=== PATIENT | male | born 1945 | race Caucasian/White ===

== ENCOUNTER 2016-06-27 09:48 | Inpatient (IN) | payer MEDICARE ==
[~2016-06-27] VITALS: Ht 182.9 cm; Wt 136.1 kg
[~2016-06-27 09:48] MED LIST: ACTOPLUS M15 MG/500 PO; ACTOS30 MG PO; ADLT ASA LOW81 MG PO; ADULT ASA81 MG OR; AVALIDE1 TA1 OR; AVALIDE1 TA1 PO; BABY ASPIRIN81 MG OR; BACTRIM DS1 TAB PO; CIPRO XR500 MG PO; CIPRO250 MG PO; CIPRO500 MG PO; CIPROFLOXACIN250 MG OR; CLINDAMYCIN300 M1 PO; COREG6.25 MG PO; DIFLUCAN100 MG PO; ESCITALOPRAM OX10 MG PO; FLEXERIL PO; GENTAMICIN15 ML/BTL OP; GLIMEPIRIDE2 MG PO; GLIPIZIDE5 MG PO; GLUCOPHAGE1000 MG PO; GLYBURIDE5 MG PO; HYDROCHLOROT12.5 MG PO; HYDROCHLOROT25 MG PO; JANUVIA100 MG PO; KEFLEX500 MG PO; LANTUS100 MG/ML SC; LEVEMIR1000 UNITS SC; LISINOPRIL20 MG PO; LORTAB 5 OR; LORTAB 5-325 MG1 TAB PO; LORTAB 5/3255 MG PO; LORTAB 7.57.5 MG/TAB PO; LORTAB5 OR; LORTAB5 PO; LOSARTAN POT50 MG PO; LOSARTAN POTASS50 MG PO; MEDDOSEPAK PO; MELOXICAM7.5 MG PO; METFORMIN HCL1000 MG PO; METFORMIN500 MG PO; MOBIC15 MG PO; MYCOLOG30 GM EX; NITRO-DUR0.4 MG/HR TD; NITROFURANTOIN100 MG PO; NORVASC10 M1 PO; NORVASC10 MG PO; NYSTAT/TRIA1 EX; NYSTATIN100000 M1 PO; PLAVIX75 MG PO; PRAVASTATIN SOD20 MG PO; TH ASPIRIN LOW81 MG PO; ULTRAM50 M1 PO; VICODIN1 TAB PO; VIGAMOX OS; WARFARIN5 MG PO; WARFARIN7.5 MG PO; XARELTO15 MG PO; ZOFRAN ODT8 MG SL; ZOFRAN4 MG/TAB PO
[2016-06-27] MEDS ORDERED: LEVEMIR FL100 UNIT/M SC (15:38)
[2016-06-30] VITALS (7 sets, daily range): BP systolic 135–160; BP diastolic 61–81
[2016-06-30] MEDS ORDERED: LOSARTAN/HCT1 TA1 PO (07:50)
[2016-06-30 08:21] LABS: HEMATOCRIT 37.6 % (39.0-50.0); HEMOGLOBIN 12.4 g/dl (14.0-18.0); IMMATURE GRANULOCYTES 0.5 % (0.0-1.0); MEAN CELL VOLUME 88.7 fL CALC (80.0-100.0); MEAN CORPUSCULAR HGB 29.2 pG CALC (26.0-32.0); NEUT# 5.86 thou/uL (1.82-7.42); RED BLOOD COUNT 4.24 mill/uL (4.70-6.10); RED CELL DISTRI WIDTH 13.2 % (11.5-15.5)
[2016-06-30 08:39] LABS: ACT PARTIAL THROMBO TIME 26.3 SECONDS (20.0-32.5); PROTHROMBIN TIME 10.7 SECONDS (9.0-12.5)
--- NOTE | 2016-06-30 15:00 | NUR ---
PT TO ROOM VIA BED ACCOMPANIED BY STAFF; PT A/O X3; DRSG TO RT SHOULDER CDI; ICE PACK APPLIED; IVF INFUSING WITHOUT DIFFICULTY; BLARI HOSE IN PLACE; PT ORIENTED TO ROOM AND CALL SYSTEM; WILL CONTINUE TO MONITOR.
--- NOTE | 2016-06-30 17:00 | NUR ---
PT SITTING UP IN CHAIR; MEDICATED ORDERED FOR C/O RT SHOULDER PAIN 10/17; CALL JEAN-BAPTISTE WITHIN REACH; WILL CONTINUE TO MONITOR.
--- NOTE | 2016-06-30 19:16 | NUR ---
BESIDE REPORT RECEIVED FROM MINDI ARAUJO. PT RESTING IN BED SUPINE WITH SLING IN PLACE TO RIGHT ARM. STATES THAT HIS PAIN IS MANAGABLE AT THIS TIME. INCENTIVE SPIROMETER AT BEDSIDE AND PT STATES HE IS USING IT. NO RESPIRATORY DISTRESS NOTED. PLAN OF CARE DISCUSSED. ENCOURAGED TO VERBALIZE CONCERNS. STATES UNDERSTANDING. SAFETY MEASURES IN PLACE. CALL LIGHT SYSTEM REVIEWED AND IN REACH.
--- NOTE | 2016-07-01 | NUR ---
PT RESTING IN SUPINE POSITION IN NO APPARENT DISTRESS. CPAP IN PLACE. UP OCCASIONALLY TO USE URINAL. INCENTIVE SPIROMETER USED WHILE AWAKE. IV SITE HAS NO SIGNS OF INFILTRATION OR PHLEBITIS. SAFETY MEASURES IN PLACE. CALL LIGHT WITHIN REACH.
[2016-07-01 03:42] VITALS: BP 150/74
--- NOTE | 2016-07-01 03:53 | NUR ---
PT UP TO CHAIR AT THIS TIME. STATES THAT PERCOCET IS EFFECTIVE FOR PAIN. ICE PACK ALSO APPLIED TO RIGHT SHOULDER. NO RESPIRATORY DISTRESS NOTED. DENIES ANY NEEDS. SAFETY MEASURES IN PLACE. CALL LIGHT WITHIN REACH.
[2016-07-01 05:34] LABS: HEMATOCRIT 38.2 % (39.0-50.0); IMMATURE GRANULOCYTES 0.5 % (0.0-1.0); MEAN CELL VOLUME 92.9 fL CALC (80.0-100.0); MEAN CORPUSCULAR HGB 29.2 pG CALC (26.0-32.0); MEAN CORPUSCULAR HGB CONC 31.4 g/L CALC (32.0-36.0); NEUT# 9.7 thou/uL (1.82-7.42); RED BLOOD COUNT 4.11 mill/uL (4.70-6.10); RED CELL DISTRI WIDTH 13.2 % (11.5-15.5)
[2016-07-01 05:48] LABS: INTERNATIONAL NORMALIZED RATIO 1.2 RATIO (0.7-1.3); PROTHROMBIN TIME 13.7 SECONDS (9.0-12.5)
[2016-07-01 05:51] LABS: ANION GAP 13 (6-22 (CALC)); BUN 10 mg/dL (8-23); BUN/CREATININE RATIO 12 (12-20 (CALC)); CALCIUM 8.1 mg/dL (8.4-10.2); CARBON DIOXIDE 26 mmol/l (22-30); CHLORIDE 104 mmol/l (95-108); CREATININE 0.8 mg/dL (0.7-1.3); GFR > 60 ML/MIN (>=60 (CALC)); GFR FOR AFR.AMER. > 60 ML/MIN (>=60 (CALC)); GLUCOSE 206 mg/dL (82-115); POTASSIUM 4.2 mmol/l (3.5-5.1); SODIUM 139 mmol/l (137-146)
--- NOTE | 2016-07-01 07:11 | NUR ---
BEDSIDE REPORT RECEIVED FROM RED YIN. PT UP TO CHAIR. DENIES PAIN. REPORTING OF CONCERNS ENCOURAGED. FALL PRECAUTIONS REINFORCED. PT STATES ANTICIPATION OF DISCHARGE. DSICHARGE PROCESS REVIEWED. PLAN OF CARE DISCUSSED. CALL LIGHT REVIEWED AND IN REACH. PT STATES UNDERSTANDING.
[2016-07-01 07:59] VITALS: BP 117/83
[2016-07-01 08:01] VITALS: BP 117/83
[2016-07-01] MEDS ORDERED: PERCOCET 10/31 COMBO PO (10:23)
--- NOTE | 2016-07-01 11:13 | NUR ---
Discharge instructions given. Patient verbalizes understanding of same. Discharged in stable condition via Wheelchair to Home with spouse. All belongings sent with pt.
== END 2016-07-01 11:17 | DRG 483 ==
LOC: ENPENDDIS → MS2 06-30 07:39
PROVIDERS: Internal Medicine; Orthopaedic Surgery; ADMIT Internal Medicine; ATTEND Internal Medicine
PROC: 0RRJ00Z Replacement of Right Shoulder Joint with Reverse Ball and Socket Synthetic Substitute, Open Approach (ICD-10-PCS; principal; 2016-06-30)
DX: M75.111 Incomplete rotator cuff tear or rupture of right shoulder, not specified as traumatic (principal); I48.0 Paroxysmal atrial fibrillation; Z68.41 Body mass index [BMI] 40.0-44.9, adult; M19.011 Primary osteoarthritis, right shoulder; S46.211A Strain of muscle, fascia and tendon of other parts of biceps, right arm, initial encounter; I10 Essential (primary) hypertension; E11.9 Type 2 diabetes mellitus without complications; G47.33 Obstructive sleep apnea (adult) (pediatric); E66.01 Morbid (severe) obesity due to excess calories; X58.XXXA Exposure to other specified factors, initial encounter; Z86.718 Personal history of other venous thrombosis and embolism; Z79.01 Long term (current) use of anticoagulants
CPT/HCPCS: J1650; J2710

== ENCOUNTER 2017-05-10 09:12 | Day surgery (SDC) | payer MEDICARE ==
[~2017-05-10] VITALS: Ht 182.9 cm; Wt 147.4 kg
[~2017-05-10 09:12] MED LIST changes: +CEPHALEXIN500 M1 PO; +LEVEMIR FL100 UNIT/M SC; +LOSARTAN/HCT1 TA1 PO; +METFORMIN500 M1 PO; +PERCOCET 10/31 COMBO PO; +TYLENOL # 31 TA1 PO
[2017-05-10 11:37] VITALS: BP 131/78
[2017-05-23] MEDS ORDERED: VOLTAREN1%GEL TOP (08:51)
== END 2017-05-10 11:45 | disposition home or self-care (01) ==
LOC: ORM 09:12
PROVIDERS: ATTEND Anesthesiology Pain Medicine
PROC: 3E0T33Z Introduction of Anti-inflammatory into Peripheral Nerves and Plexi, Percutaneous Approach (ICD-10-PCS; principal; 2017-05-10)
PROC: 3E0T3BZ Introduction of Anesthetic Agent into Peripheral Nerves and Plexi, Percutaneous Approach (ICD-10-PCS; 2017-05-10)
DX: R07.82 Intercostal pain (principal); M79.2 Neuralgia and neuritis, unspecified

== ENCOUNTER 2017-11-25 19:07 | Inpatient (IN) | payer MEDICARE ==
[~2017-11-25] VITALS: Ht 182.9 cm; Wt 147.2 kg
[~2017-11-25 19:07] MED LIST changes: +VOLTAREN1%GEL TOP
--- NOTE | 2017-11-25 19:26 | NUR ---
PT WHEELED INTO ROOM
[2017-11-25 19:56] LABS: HEMATOCRIT 37.9 % (39.0-50.0); HEMOGLOBIN 12.8 g/dl (14.0-18.0); IMMATURE GRANULOCYTES 0.8 % (0.0-5.0); MEAN CELL VOLUME 91.5 fL CALC (80.0-100.0); MEAN CORPUSCULAR HGB 30.9 pG CALC (26.0-32.0); MEAN CORPUSCULAR HGB CONC 33.8 g/L CALC (32.0-36.0); NEUT# 6.8 thou/uL (1.82-7.42); RED BLOOD COUNT 4.14 mill/uL (4.70-6.10); RED CELL DISTRI WIDTH 12.2 % (11.5-15.5)
--- NOTE | 2017-11-25 20:03 | NUR ---
PT TO XRAY FOR [address] VIEW[address] PT TO HAVE [address] SCAN, WILL BE TRANSFERED TO [facility]. PT AND FAMILY AWARE.
[2017-11-25 20:13] LABS: ALBUMIN 3.1 g/dL (3.2-5.0); ALKALINE PHOSPHATASE 83 u/l (38-126); ANION GAP 11 (6-22 (CALC)); BILIRUBIN, TOTAL 0.3 mg/dL (0.0-1.4); BUN 8 mg/dL (8-23); BUN/CREATININE RATIO 12 (12-20 (CALC)); C-REACTIVE PROTEIN 4.9 mg/dL (0-0.9); CARBON DIOXIDE 28 mmol/l (22-30); CHLORIDE 102 mmol/l (95-108); CREATININE 0.7 mg/dL (0.7-1.3); GFR > 60 ML/MIN (>=60 (CALC)); GFR FOR AFR.AMER. > 60 ML/MIN (>=60 (CALC)); SGOT/AST 16 u/l (19-48); SGPT/ALT 30 u/l (11-66); SODIUM 138 mmol/l (137-146); TOTAL PROTEIN 5.9 g/dL (6.3-8.2)
[2017-11-25 20:15] LABS: INTERNATIONAL NORMALIZED RATIO 1.3 RATIO (0.7-1.3); PROTHROMBIN TIME 14.2 SECONDS (9.0-12.5)
[2017-11-25] MEDS ORDERED: (None)1 % OD (20:35)
[2017-11-25] MEDS ORDERED: ACULAR OD (20:37)
--- NOTE | 2017-11-25 21:03 | NUR ---
[facility] HERE TO TRANSPORT TO [facility] FOR CT SCAN.
--- NOTE | 2017-11-26 | NUR ---
PT BACK FROM [facility], FULL LITER OF NS STILL HANGING. PER M[place], EMT-P FROM [facility] PT WOULD NOT KEEP ARM STRAIGHT. WHEN IV PLACED ON PUMP, PT COMPLAINED IV HURTING. NOTED IV SITE INFILTRATED. PULLED IV
--- NOTE | 2017-11-26 00:57 | NUR ---
RESTARTED IV TO RIGHT FOREARM DR BUTLER UPDATED FAMILY ON PT'S RESULTS AND PLAN TO ADMIT. DAUGHTER QUESTIONED IF [facility] WAS THE APPROPRIATE PLACE FOR PT DUE TO DX AND DR BUTLER ASSURED FAMILY IT WAS.
[2017-11-26 01:00] VITALS: BP 130/68
--- NOTE | 2017-11-26 01:09 | NUR ---
REPORT GIVEN TO INGE. MINDI
--- NOTE | 2017-11-26 01:24 | NUR ---
Admission Note Report Given to: MINDI ALCAZAR Transported by: Wheelchair X Stretcher Transported with: X Nurse Transporter X Patent IV O2 X Credentials Specialist
[2017-11-26 01:30] VITALS: BP 163/69
--- NOTE | 2017-11-26 02:30 | NUR ---
PATIENT ADMITTED FROM ER VIA STRETCHER WITH ER STAFF IN ATTENDANCE. PATIENT BEING ADMITTED FOR SUBACUTE MULTIFOCAL CVA. PATIENT MAX ASSIST FROM STRETCHER TO STANDING SCALE AND THEN TO BED. PATIENT IS VERY UNSTEADY ON HIS FEET. PATIENT IS AWAKE ALERT AND ORIENTED TO PERSON AND PLACE. PATIENT WITH COMPLAINT OF SEVERE HEADACHE. MEDICATED WITH LORTAB 5/325MG PO TABS 2 ORDERED. PATIENT STATES THAT HE WAS BROUGHT TO THE ER TONIGHT BY HIS FOR SEVERE H/A AND SEVERE WEAKNESS. HAND GRASP ARE EQUAL AND STRONG. PATIENT WITH VISUAL DIFFICULTIES. STATES THAT HE DID HAVE SOME EYE SURGERY AND DIFFICULTIES A FEW MONTHS AGO. PATIENT IS ABLE TO MOVE ALL EXTREMITIES. NO DIFFICULTY WITH SPEECH AT THIS TIME. PATIENT ASSIST TO THE SIDE OF THE BED TO ATTEMPT TO VOID BUT NOT ABLE AT THIS TIME. TRANSFERRED TO THE [facility] AND WAS NOT ABLE TO VOID THERE EITHER. ASSISTED BACK TO THE BED AND BLADDER SCANNED FOR 156CC. PATIENT ASKING FOR SANDWICH AND DRINK AND WAS ABLE TO EAT SMALL AMT OF THE SANDWICH WITH NO DIFFICULTY. DRINKING WITHOUT ANY DIFFICULTY. PATIENT ORIENTED TO ROOM AND SURROUNDINGS. INSTRUCTED ON USE OF NURSE CALL LIGHT SYSTEM AND TV REMOTE. SAFETY PRECAUTIONS REVIEWED WITH PATIENT. FAMILY AT BEDSIDE WITH C-PAP FROM HOME. CALL LIGHT IN REACH. WILL CONT TO MONITOR.
--- NOTE | 2017-11-26 04:12 | NUR ---
RT HERE AND SET UP C-PAP FOR PATIENT. RESTING IN BED AND STATES THAT THE PAIN MEDS WERE EFFECTIVE WITHPAIN SCALE OF 4/10 AT THIS TIME. SAFETY PRECAUTIONS REINFORCED. CALL LIGHT IN REACH. WILL CONT TO [facility].
[2017-11-26 04:27] VITALS: BP 154/82
--- NOTE | 2017-11-26 06:05 | NUR ---
PATIENT APPEARS SLEEPING WITH C-PAP IN PLACE AND EYES CLOSED. RESP ARE EVEN AND UNLABORED. CALL LIGHT IN REACH. WILL CONT TO MONITOR.
--- NOTE | 2017-11-26 06:39 | NUR ---
PATIENT ASKING TO GET OOB AT THIS TIME. TELE MONITOR LEADS REPLACED. PATIENT ASSISTED OOB TO RECLINER WITH USE OF WALKER AND STAFF. PATIENT INCONT OF MODERATE AMT OF URINE. PADS CHANGED. PATIENT CONT TO HAVE VISION PROBLEMS-ATTEMPTING TO SUPERVISOR SILVERING DEPARTMENT OR PLACE THINGS INAPPROPRIATELY. CALL LIGHT IN REACH. WILL CONT TO MONITOR.
--- NOTE | 2017-11-26 07:06 | NUR ---
REPORT RECIEVED BY JAIMIE. PT IS SITTING IN THE RECLINER WITH NO S/S OF DISTRESS NOTED. CALL LIGHT IN REACH.
--- NOTE | 2017-11-26 08:05 | NUR ---
PT IS SITTING IN RECLINER. TELE IN PLACE. LUNG SOUND CLEAR/DIMINISHED. #[id number] THAT APPEAR HEALTHY. PT DENIES NEEDS AT THIS TIME. SAFETY PRECAUTIONS REINFORCED AND CALL LIGHT IN REACH.
[2017-11-26 08:30] VITALS: BP 170/85
--- NOTE | 2017-11-26 12:44 | NUR ---
MEDICATED PT WITH LORTAB FOR PAIN SEE EMAR. IN ROOM. PT DENIES ANY OTHER NEEDS AT THIS TIME. CALL LIGHT IN REACH.
[2017-11-26 13:01] LABS: URINE BILIRUBIN - DIPSTICK NEGATIVE (NEGATIVE); URINE BLOOD DIPSTICK TRACE-LYSED (NEGATIVE); URINE COLOR YELLOW; URINE GLUCOSE - DIPSTICK >=1000 mg/dL (NEGATIVE); URINE KETONE 15 mg/dL (NEGATIVE); URINE LEUK ESTERASE NEGATIVE (NEGATIVE); URINE NITRITE - DIPSTICK NEGATIVE (Negative); URINE PROTEIN - DIPSTICK NEGATIVE (NEG-TRACE); URINE SPECIFIC GRAVITY 1.015; URINE UROBILINOGEN - DIPSTICK 0.2 E.U./dL (0.2)
[2017-11-26 13:03] LABS: URINE CLARITY CLEAR
[2017-11-26 14:31] LABS: HEMOGLOBIN 12.7 g/dl (14.0-18.0); IMMATURE GRANULOCYTES 1.2 % (0.0-5.0); MEAN CELL VOLUME 90.2 fL CALC (80.0-100.0); MEAN CORPUSCULAR HGB CONC 34.3 g/L CALC (32.0-36.0); NEUT# 7.75 thou/uL (1.82-7.42); RED BLOOD COUNT 4.1 mill/uL (4.70-6.10); RED CELL DISTRI WIDTH 12.2 % (11.5-15.5)
[2017-11-26 14:41] LABS: ANION GAP 16 (6-22 (CALC)); BUN 13 mg/dL (8-23); BUN/CREATININE RATIO 18 (12-20 (CALC)); CARBON DIOXIDE 22 mmol/l (22-30); CHLORIDE 101 mmol/l (95-108); CREATININE 0.7 mg/dL (0.7-1.3); GFR > 60 ML/MIN (>=60 (CALC)); GFR FOR AFR.AMER. > 60 ML/MIN (>=60 (CALC)); POTASSIUM 4.2 mmol/l (3.5-5.1); SODIUM 134 mmol/l (137-146)
[2017-11-26 16:00] VITALS: BP 169/83
--- NOTE | 2017-11-26 16:05 | NUR ---
PT IS RESTING IN BED WITH NO S/S OF DISTRESS NOTED. PT DENIES NEEDS AT THIS TIME. CALL LIGHT IN REACH . IN ROOM.
--- NOTE | 2017-11-26 19:20 | NUR ---
PATIENT APPEARS SLEEPING WITH C-PAP IN PLACE AND PATIENT POSITIONED ON HIS SIDE. RESP ARE EVEN AND UNLABORED AT THIS TIME. CALL LIGHT IN REACH. WILL CONT TO MONITOR.
[2017-11-26 19:46] VITALS: BP 123/69
--- NOTE | 2017-11-26 22:00 | NUR ---
PATIENT RESTING IN BED AT THIS TIME-AWAKE ALERT AND ORIENTEDX3. PATIENT DID GET SHOWER EALIER WITH ASSIST OF SCIENTIFIC PHOTOGRAPHER. PATIENT IS HAVING DIFFICULTY WITH ANY KIND OF CONTROL REGUARDING URINATION-WHEN AMB TO THE BR EARLIER WAS DRIBBLING ALL THE WAY TO THE BR. WHEN ASSISTING TO THE BSC-DRIBBLING ON THE FLOOR. INCONT OF SMALL AMT OF URINE IN THE BED ON LINEN PADS. PATIENT CONT TO C/O RIGHT SIDE HEADACHE. MEDICATED WITH LORTAB FOR 7/10 PAIN SCALE. [id number] WITH 7UNITS OF NOVALOG SC RIGHT UPPER ARM. HS SNACK PROVIDED. LOVENOX GIVEN ORDERED. HEP LOCK TO RIGHT WRIST INTACT-APPEARS HEALTHY AT THIS TIME. PATIENT CONT TO HAVE VISUAL DIFFICULTIES MICHELLE WITH RIGHT EYE. TELE MONITORING DEVICE IN PLACE-SR. LUNGS ARE DIMINISHED THROUGHOUT. ENCOURAGED DEEP BREATING EXERCISES. ABD IS LARGE WITH BS PRESENT. NO PEDAL EDEMA NOTED. SAFETY PRECAUTIONS REINFORCED. CALL LIGHT IN REACH. WILL CONT TO MONITOR.
--- NOTE | 2017-11-26 22:51 | NUR ---
PATIENT ASSISTED UP TO THE BSC AGAIN AND PATIENT AGAIN CONSTANT DRIBBLING. GEETA-CARE DONE AGAIN WITH SOAP AND WATER AND ASSISTED BACK TO THE BED. LINEN AND GOWN CHANGED. PATIENT PROVIDED WITH SECURED PAD FOR CONSTANT DRIBBLING. PATIENT ASSISTED WITH C-PAP AND HOB ELEVATED. HEADACHE IS BETTER WITH PAIN SCALE OF 4/7. SAFETY PRECAUTIONS REINFORCED. CALL LIGHT IN REACH. WILL CONT TO MONITOR.
[2017-11-27 00:25] VITALS: BP 149/74
--- NOTE | 2017-11-27 03:13 | NUR ---
PATIENT APPEARS SLEEPING WITH C-PAP IN PLACE POSITIONED ON HIS SIDE. CALL LIGHT IN REACH. WILL CONT TO MONITOR.
[2017-11-27 05:13] VITALS: BP 171/79
[2017-11-27 08:00] VITALS: BP 137/55
--- NOTE | 2017-11-27 09:00 | NUR ---
PT SEEN AWAKE, ALERT, UP OOB IN CHAIR. LUNGS CLEAR, RA. ABDOMEN SOFT, DISTENDED, BM MONDAY. PT WITH NOTED VISION ISSUES, REACHES FOR SOMETHING AND MISSES. NO ACUTE DISTRESS.
[2017-11-27 11:29] VITALS: BP 133/61
--- NOTE | 2017-11-27 13:00 | NUR ---
PT'S HAS BEEN AT BEDSIDE THIS AM. PT HAS GOTTEN BACK INTO BED, USES HIS OWN CPAP. PT THOUGHT IT WAS TWO IN THE AFTERNOON, HAVING READ THE HANDS OF THE CLOCK WRONG.
[2017-11-27 15:35] VITALS: BP 138/59
--- NOTE | 2017-11-27 17:28 | NUR ---
PT OOB IN CHAIR FOR SUPPER, NO COMPLAINT OF HEADACHE, DIZZINESS, OR OTHERWISE.
--- NOTE | 2017-11-27 18:21 | NUR ---
PT LEAVES FLOOR FOR ECHOCARDIOGRAM AT THIS TIME.
--- NOTE | 2017-11-27 18:50 | NUR ---
PT RETURNED TO ROOM 270 FROM ECHO IN STABLE CONDITION. ACCOMPANIED BY DIESEL DINKEY ENGINEER
[2017-11-27 19:40] VITALS: BP 119/68
--- NOTE | 2017-11-27 19:45 | NUR ---
PT RESTING IN BED. ASSISTED PT TO PLACE CPAP ON. PT IS ALERT AND ORIENTED X3. SHIFT ASSESSMENT COMPLETED AT THIS TIME. IV PATENT X1. PLAN OF CARE REIVEWED WITH PT. PT WAS MEDICATED PER MAR FOR A ZEPEDA. CALL LIGHT IN REACH. WILL CONTINUE TO [facility]
--- NOTE | 2017-11-27 23:49 | NUR ---
PT RESTING IN BED WITH EYES CLOSED. CPAP IN PLACE. RESP ARE EVEN AND UNLABORED. NO DISTRESS NOTED. CALL LIGHT IN REACH. WILL CONTINUE TO MONITOR
[2017-11-28 00:30] VITALS: BP 117/72
--- NOTE | 2017-11-28 03:40 | NUR ---
PT RESTING IN BED WITH EYES CLOSED. RESP ARE EVEN AND UNLABORED. NO DISTRESS NOTED. CALL LIGHT IN REACH. WILL CONTINUE TO MONITOR
[2017-11-28 04:05] VITALS: BP 138/77
[2017-11-28 05:07] LABS: HEMATOCRIT 39.2 % (39.0-50.0); HEMOGLOBIN 13.3 g/dl (14.0-18.0); MEAN CELL VOLUME 90.7 fL CALC (80.0-100.0); MEAN CORPUSCULAR HGB 30.8 pG CALC (26.0-32.0); MEAN CORPUSCULAR HGB CONC 33.9 g/L CALC (32.0-36.0); RED BLOOD COUNT 4.32 mill/uL (4.70-6.10); RED CELL DISTRI WIDTH 12.3 % (11.5-15.5)
[2017-11-28 05:34] LABS: ANION GAP 12 (6-22 (CALC)); BUN 17 mg/dL (8-23); BUN/CREATININE RATIO 23 (12-20 (CALC)); CARBON DIOXIDE 26 mmol/l (22-30); CHLORIDE 100 mmol/l (95-108); CREATININE 0.7 mg/dL (0.7-1.3); GFR > 60 ML/MIN (>=60 (CALC)); GFR FOR AFR.AMER. > 60 ML/MIN (>=60 (CALC)); POTASSIUM 4.1 mmol/l (3.5-5.1); SODIUM 134 mmol/l (137-146)
--- NOTE | 2017-11-28 06:55 | NUR ---
REPORT RECEIVED FROM MINDI BENNETT;PT APPEARS TO BE SLEEPING IN SUPINE POSITION WITH HOME CPAP ON;RESPIRATIONS EVEN AND UNLABORED ON RA;NO S/S OF DISTRESS NOTED;TELE MONITOR IN PLACE;FALL PRECAUTIONS NOTED WITH BED IN THE LOWEST POSITION;CALL LIGHT IN REACH;WILL CONTINUE TO MONITOR
--- NOTE | 2017-11-28 07:50 | NUR ---
PT OOB RESTING IN RECLINER;VS OBTAINED AND ASSESSMENT COMPLETED;PT DENIES ANY CURRENT PAIN OR NEEDS;RESPIRATIONS EVEN AND UNLABORED ON RA,CLEAR LUNG SOUNDS NOTED;ABDOMEN DISTENDED/SOFT ON PALPATION AND ACTIVE IN ALL 4 QUADRANTS;WEAK PEDAL PULSES;#22G TO RIGHT WIRST FLUSHED AND PATENT,SITE APPEARS HEALTHY;TELE MONITOR IN PLACE;PT VOIDED 150ML OF CLEAR/YELLOW URINE INTO URINAL;SKIN INTACT;PT DENIES ANY CURRENT NEEDS AND IS INSTRUCTED TO CALL FOR ASSISTANCE IF NEEDED;FALL PRECAUTIONS IN PLACE WITH CALL LIGHT IN REACH;WILL CONTINUE TO MONITOR
[2017-11-28 07:52] VITALS: BP 145/76
[2017-11-28] MEDS ORDERED: PREDNISONE20 MG PO (09:12)
[2017-11-28] MEDS ORDERED: COUMADIN5 MG PO (09:12)
[2017-11-28] MEDS ORDERED: ASPIRIN ADULT L81 M2 PO (09:12)
[2017-11-28 11:26] VITALS: BP 123/58
--- NOTE | 2017-11-28 11:30 | NUR ---
ALL DISCHARGE INFORMATION DISCUSSED AT THIS TIME;PT ENCOURAGED TO MONITOR BLOOD SUGAR;ALL QUESTIONS ANSWERED AND PT VERBALIZES UNDERSTANDING;IV SITE REMOVED WITH CATHETER INTACT;WHEELCHAIR TO BE PROVIDED FOR DISCHARGE;AWAITING [facility] WILL FOR MEDICATIONS.
--- NOTE | 2017-11-28 13:03 | NUR ---
Discharge instructions given. Patient verbalizes understanding of same. Discharged in stable condition via Wheelchair to Home with spouse. All belongings sent with pt.
--- NOTE | 2017-11-28 15:15 | NUR ---
Mr. De Jesus is a 72 year old male who was admitted to the hospital via ER following severe headache and weakness. A Speech/Language evaluation order was written and SCHOOL BUS DRIVER/CUSTODIAN attempted evaluation 11/28 but Mr. De Jesus was unavailable, taking a shower. When a second attempt was made Mr. De Jesus had been discharged. SCHOOL BUS DRIVER/CUSTODIAN will request d/c of inpatient order and will be available for evaluation through the [facility] Physical Medicine department. Thank you for the referral. Dileep Ponce M.A., [facility]-SCHOOL BUS DRIVER/CUSTODIAN
== END 2017-11-28 13:04 | disposition home or self-care (01) | DRG 65 ==
LOC: ED 19:07 → ED-I 11-26 00:25 → ED 11-26 00:51 → MS2 11-26 00:51
PROVIDERS: Family Medicine; Internal Medicine; ADMIT General Practice; ATTEND General Practice
DX: I63.511 Cerebral infarction due to unspecified occlusion or stenosis of right middle cerebral artery (principal); Z68.41 Body mass index [BMI] 40.0-44.9, adult; I67.4 Hypertensive encephalopathy; I11.9 Hypertensive heart disease without heart failure; I63.531 Cerebral infarction due to unspecified occlusion or stenosis of right posterior cerebral artery; M31.5 Giant cell arteritis with polymyalgia rheumatica; R26.9 Unspecified abnormalities of gait and mobility; E11.9 Type 2 diabetes mellitus without complications; F32.9 Major depressive disorder, single episode, unspecified; I48.0 Paroxysmal atrial fibrillation; D64.9 Anemia, unspecified; I25.10 Atherosclerotic heart disease of native coronary artery without angina pectoris; G47.33 Obstructive sleep apnea (adult) (pediatric); R32 Unspecified urinary incontinence; E78.5 Hyperlipidemia, unspecified; M19.90 Unspecified osteoarthritis, unspecified site; E66.01 Morbid (severe) obesity due to excess calories; Z86.718 Personal history of other venous thrombosis and embolism; Z79.02 Long term (current) use of antithrombotics/antiplatelets; Z79.4 Long term (current) use of insulin; Z86.711 Personal history of pulmonary embolism
CPT/HCPCS: J1650

== ENCOUNTER 2018-03-09 13:14 | Emergency (ER) | payer MEDICARE ==
[~2018-03-09] VITALS: Ht 182.9 cm; Wt 113.6 kg
[~2018-03-09 13:14] MED LIST changes: +(None)1 % OD; +ACULAR OD; +ASPIRIN ADULT L81 M2 PO; +COUMADIN5 MG PO; +PREDNISONE20 MG PO
[2018-03-09 14:23] LABS: HEMATOCRIT 39.4 % (39.0-50.0); HEMOGLOBIN 13.6 g/dl (14.0-18.0); IMMATURE GRANULOCYTES 0.5 % (0.0-5.0); MEAN CORPUSCULAR HGB 31.4 pG CALC (26.0-32.0); MEAN CORPUSCULAR HGB CONC 34.5 g/L CALC (32.0-36.0); NEUT# 5.99 thou/uL (1.82-7.42); RED BLOOD COUNT 4.33 mill/uL (4.70-6.10); RED CELL DISTRI WIDTH 13.2 % (11.5-15.5)
[2018-03-09 14:41] LABS: ALBUMIN 3.7 g/dL (3.2-5.0); ALKALINE PHOSPHATASE 81 u/l (38-126); ANION GAP 13 (6-22 (CALC)); BILIRUBIN, TOTAL 0.8 mg/dL (0.0-1.4); BUN 8 mg/dL (8-23); BUN/CREATININE RATIO 8 (12-20 (CALC)); CARBON DIOXIDE 27 mmol/l (22-30); CHLORIDE 107 mmol/l (95-108); GFR > 60 ML/MIN (>=60 (CALC)); GFR FOR AFR.AMER. > 60 ML/MIN (>=60 (CALC)); POTASSIUM 2.9 mmol/l (3.5-5.1); SGOT/AST 21 u/l (19-48); SODIUM 143 mmol/l (137-146); TOTAL PROTEIN 6.7 g/dL (6.3-8.2)
[2018-03-09 14:43] LABS: INTERNATIONAL NORMALIZED RATIO 1.9 RATIO (0.7-1.3); PROTHROMBIN TIME 19.7 SECONDS (9.0-12.5)
[2018-03-09 15:06] VITALS: BP 172/78
[2018-03-09] MEDS ORDERED: K-TAB20 MEQ PO (15:47)
[2018-03-09] MEDS ORDERED: REGLAN10 MG PO (15:48)
== END 2018-03-09 16:10 | disposition home or self-care (01) ==
LOC: ED 13:14
PROVIDERS: Family Medicine
DX: R25.1 Tremor, unspecified (principal); R11.0 Nausea; I10 Essential (primary) hypertension; E11.9 Type 2 diabetes mellitus without complications; G47.30 Sleep apnea, unspecified; I48.91 Unspecified atrial fibrillation; E78.00 Pure hypercholesterolemia, unspecified; F32.9 Major depressive disorder, single episode, unspecified

== ENCOUNTER 2018-06-06 09:00 | Outpatient (RCR) | payer MEDICARE ==
--- NOTE | 2018-05-11 14:08 | NUR ---
Pt. in for IOP and Treatment Team. Pt. is clean and neat. Alert and oriented times 3. Affect is mildly bright. Mood improving-Pt. states "I'm feeling better". Pt. 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 Pt. states the program is really helping with his depression and anxiety. Pt. denies any suicidal ideations. Pt. states his PCP increased his B/P meds. Pt. to report to the Program Nurse the changes in his medications. Pt. to continue with his current treatment plan. Pt. is attending IOP 2 times a week with monthly 1:1. Will follow up in one month. Treatment team is concluded.
[2018-05-30 10:40] VITALS: BP 158/89
[~2018-06-06 09:00] MED LIST changes: +BUSPAR10 M1 PO; +K-TAB20 MEQ PO; +REGLAN10 MG PO; +WELLBUTRIN XL300 MG PO
== END 2018-06-07 23:59 | disposition still patient (30) ==
LOC: SLIP3 09:00
PROVIDERS: ATTEND Specialist
DX: F33.1 Major depressive disorder, recurrent, moderate (principal); F41.1 Generalized anxiety disorder

== ENCOUNTER → 2018-06-28 | Outpatient (REF) | payer MEDICARE ==
[2018-06-28 14:24] LABS: URINE BILIRUBIN - DIPSTICK NEGATIVE (NEGATIVE); URINE BLOOD DIPSTICK NEGATIVE (NEGATIVE); URINE COLOR YELLOW; URINE GLUCOSE - DIPSTICK NEGATIVE (NEGATIVE); URINE KETONE NEGATIVE (NEGATIVE); URINE LEUK ESTERASE NEGATIVE (NEGATIVE); URINE NITRITE - DIPSTICK NEGATIVE (Negative); URINE PH 6.5 (4.5-8.0); URINE PROTEIN - DIPSTICK NEGATIVE (NEG-TRACE); URINE SPECIFIC GRAVITY 1.025
[2018-06-28 14:45] LABS: ANION GAP 13 (6-22 (CALC)); BUN 14 mg/dL (8-23); BUN/CREATININE RATIO 14 (12-20 (CALC)); CARBON DIOXIDE 26 mmol/l (22-30); CHLORIDE 107 mmol/l (95-108); GFR > 60 ML/MIN (>=60 (CALC)); GFR FOR AFR.AMER. > 60 ML/MIN (>=60 (CALC)); POTASSIUM 4.4 mmol/l (3.5-5.1); SODIUM 140 mmol/l (137-146)
[2018-06-28 14:50] LABS: HEMATOCRIT 38.9 % (39.0-50.0); HEMOGLOBIN 12.7 g/dl (14.0-18.0); IMMATURE GRANULOCYTES 0.9 % (0.0-5.0); MEAN CELL VOLUME 93.5 fL CALC (80.0-100.0); MEAN CORPUSCULAR HGB 30.5 pG CALC (26.0-32.0); MEAN CORPUSCULAR HGB CONC 32.6 g/L CALC (32.0-36.0); NEUT# 6.56 thou/uL (1.82-7.42); RED BLOOD COUNT 4.16 mill/uL (4.70-6.10); RED CELL DISTRI WIDTH 12.4 % (11.5-15.5)
== END | disposition home or self-care (01) ==
LOC: LAB 13:38
PROVIDERS: ATTEND Nurse Practitioner Family
DX: R10.819 Abdominal tenderness, unspecified site (principal); R82.90 Unspecified abnormal findings in urine

== ENCOUNTER 2018-12-12 21:00 | Emergency (ER) | payer MEDICARE ==
[~2018-12-12] VITALS: Ht 180.3 cm; Wt 132.0 kg
[~2018-12-12 21:00] MED LIST changes: +BUSPIRONE7.5 MG PO; +LISINOPRIL20 M1 PO
[2018-12-12 21:40] LABS: HEMATOCRIT 39.7 % (39.0-50.0); HEMOGLOBIN 13.1 g/dl (14.0-18.0); IMMATURE GRANULOCYTES 0.4 % (0.0-5.0); MEAN CELL VOLUME 91.9 fL CALC (80.0-100.0); MEAN CORPUSCULAR HGB 30.3 pG CALC (26.0-32.0); NEUT# 6.24 thou/uL (1.82-7.42); RED BLOOD COUNT 4.32 mill/uL (4.70-6.10); RED CELL DISTRI WIDTH 12.5 % (11.5-15.5)
[2018-12-12 22:04] LABS: ACT PARTIAL THROMBO TIME 24.9 SECONDS (20.0-32.5); D-DIMER 0.31 mg/L (0.19-0.60); PROTHROMBIN TIME 10.2 SECONDS (9.0-12.5)
[2018-12-12 22:05] LABS: ALKALINE PHOSPHATASE 68 u/l (38-126); ANION GAP 12 (6-22 (CALC)); BILIRUBIN, TOTAL 0.6 mg/dL (0.0-1.4); BUN 20 mg/dL (8-23); BUN/CREATININE RATIO 18 (12-20 (CALC)); CARBON DIOXIDE 26 mmol/l (22-30); CHLORIDE 106 mmol/l (95-108); CREATININE 1.1 mg/dL (0.7-1.3); GFR > 60 ML/MIN (>=60 (CALC)); GFR FOR AFR.AMER. > 60 ML/MIN (>=60 (CALC)); MAGNESIUM 1.7 mg/dL (1.6-2.3); POTASSIUM 4.5 mmol/l (3.5-5.1); SODIUM 139 mmol/l (137-146); TOTAL PROTEIN 7.2 g/dL (6.3-8.2)
[2018-12-12 22:06] LABS: DIGOXIN 0.5 ng/mL (0.8-2.0); SGOT/AST 35 u/l (19-48)
[2018-12-12 23:30] VITALS: BP 112/56
[2018-12-14] MEDS ORDERED: WARFARIN2 MG PO (10:26)
[2018-12-14] MEDS ORDERED: VISTARIL 50MG C50 M1 PO (11:57)
== END 2018-12-13 00:03 | disposition home or self-care (01) ==
LOC: ED 21:00
DX: I48.91 Unspecified atrial fibrillation (principal); I10 Essential (primary) hypertension; E11.9 Type 2 diabetes mellitus without complications; Z86.73 Personal history of transient ischemic attack (TIA), and cerebral infarction without residual deficits; Z86.718 Personal history of other venous thrombosis and embolism; Z79.4 Long term (current) use of insulin

== ENCOUNTER 2018-12-14 10:14 | Emergency (ER) | payer MEDICARE ==
[~2018-12-14] VITALS: Ht 180.3 cm; Wt 131.8 kg
[2018-12-14] MEDS ORDERED: WARFARIN2 MG PO (10:26)
[2018-12-14 10:51] LABS: HEMATOCRIT 40.5 % (39.0-50.0); HEMOGLOBIN 13.1 g/dl (14.0-18.0); IMMATURE GRANULOCYTES 0.5 % (0.0-5.0); MEAN CELL VOLUME 94.2 fL CALC (80.0-100.0); MEAN CORPUSCULAR HGB 30.5 pG CALC (26.0-32.0); MEAN CORPUSCULAR HGB CONC 32.3 g/L CALC (32.0-36.0); NEUT# 7.53 thou/uL (1.82-7.42); RED BLOOD COUNT 4.3 mill/uL (4.70-6.10); RED CELL DISTRI WIDTH 12.8 % (11.5-15.5)
[2018-12-14 11:11] LABS: ANION GAP 13 (6-22 (CALC)); BUN 17 mg/dL (8-23); BUN/CREATININE RATIO 19 (12-20 (CALC)); CARBON DIOXIDE 27 mmol/l (22-30); CHLORIDE 105 mmol/l (95-108); CREATININE 0.9 mg/dL (0.7-1.3); GFR > 60 ML/MIN (>=60 (CALC)); GFR FOR AFR.AMER. > 60 ML/MIN (>=60 (CALC)); POTASSIUM 4.9 mmol/l (3.5-5.1); SODIUM 140 mmol/l (137-146)
[2018-12-14] MEDS ORDERED: VISTARIL 50MG C50 M1 PO (11:57)
[2018-12-14 12:01] VITALS: BP 160/74
== END 2018-12-14 12:18 | disposition home or self-care (01) ==
LOC: ED 10:14
PROVIDERS: Family Medicine
DX: R25.1 Tremor, unspecified (principal); I10 Essential (primary) hypertension; E11.9 Type 2 diabetes mellitus without complications; I48.91 Unspecified atrial fibrillation; Z79.4 Long term (current) use of insulin

== ENCOUNTER 2019-05-21 | Day surgery (SDC) | payer MEDICARE ==
[~2019-05-21] MED LIST changes: +METFORMIN1000 MG PO; +VISTARIL 50MG C50 M1 PO; +WARFARIN2 MG PO; +XARELTO2.5 MG PO
[2019-05-21] MEDS ORDERED: TYLENOL PM PO (08:21)
[2019-05-21] MEDS ORDERED: VIIBRYD20 MG PO (08:22)
[2020-01-07] MEDS ORDERED: VIIBRYD40 MG PO (16:52)
== END 2019-05-21 09:55 | disposition home or self-care (01) ==
PROC: 0DJD8ZZ Inspection of Lower Intestinal Tract, Via Natural or Artificial Opening Endoscopic (ICD-10-PCS; principal; 2019-05-21)
DX: Z12.11 Encounter for screening for malignant neoplasm of colon (principal); K64.8 Other hemorrhoids; I10 Essential (primary) hypertension; E11.9 Type 2 diabetes mellitus without complications; I48.91 Unspecified atrial fibrillation; Z79.4 Long term (current) use of insulin

== ENCOUNTER 2020-08-19 12:40 | Observation (INO) | payer MEDICARE ==
[~2020-08-19] VITALS: Ht 182.9 cm; Wt 127.0 kg
[~2020-08-19 12:40] MED LIST changes: +OZEMPIC2 MG/1.5 M SC; +PRAVASTATIN40 MG PO; +TYLENOL PM PO; +VIIBRYD20 MG PO; +VIIBRYD40 MG PO
--- NOTE | 2020-08-19 13:10 | NUR ---
PATIENT IN ROOM AT THIS TIME
[2020-08-19 13:50] LABS: HEMATOCRIT 41.7 % (39.0-50.0); HEMOGLOBIN 13.7 g/dl (14.0-18.0); IMMATURE GRANULOCYTES 0.4 % (0.0-5.0); MEAN CELL VOLUME 91.9 fL CALC (80.0-100.0); MEAN CORPUSCULAR HGB 30.2 pG CALC (26.0-32.0); MEAN CORPUSCULAR HGB CONC 32.9 g/dL CAL (32.0-36.0); NEUT# 4.74 thou/uL (1.82-7.42); RED BLOOD COUNT 4.54 mill/uL (4.70-6.10); RED CELL DISTRI WIDTH 12.9 % (11.5-15.5)
[2020-08-19 14:03] LABS: ALBUMIN 3.9 g/dL (3.2-5.0); ALKALINE PHOSPHATASE 59 u/l (38-126); ANION GAP 10 (6-22 (CALC)); BILIRUBIN, TOTAL 0.6 mg/dL (0.0-1.4); BUN 12 mg/dL (8-23); BUN/CREATININE RATIO 14 (12-20 (CALC)); CARBON DIOXIDE 26 mmol/l (22-30); CHLORIDE 105 mmol/l (95-108); CREATININE 0.8 mg/dL (0.7-1.3); GFR > 60 ML/MIN (>=60 (CALC)); GFR FOR AFR.AMER. > 60 ML/MIN (>=60 (CALC)); POTASSIUM 3.9 mmol/l (3.5-5.1); SGOT/AST 22 u/l (19-48); SODIUM 137 mmol/l (137-146); TOTAL PROTEIN 7.2 g/dL (6.3-8.2)
[2020-08-19] MEDS ORDERED: TRAZODONE50 MG PO (16:02)
[2020-08-19] MEDS ORDERED: ARIPIPRAZOLE2 MG PO (16:02)
[2020-08-19] MEDS ORDERED: BUSPAR5 MG PO (16:03)
--- NOTE | 2020-08-19 16:15 | NUR ---
CURRENTLY PRESENT BEDSIDE, PATIENT CONTINUES TO STATES THAT "HE'S GONNEN HOME"
[2020-08-19 16:20] VITALS: BP 172/80
--- NOTE | 2020-08-19 16:34 | NUR ---
AMA FORM SIGNED BY PATIENT. PATIENT ENCOURAGED TO RETURN FOR ANY NEEDS
--- NOTE | 2020-08-19 16:50 | NUR ---
PER DIANA MOON PT AMAbby'Chandni IN THE ER
== END 2020-08-19 17:01 | disposition left against medical advice (07) ==
LOC: ED 12:40 → ED-I 14:06 → ED 14:28 → MS2 14:29
PROVIDERS: Family Medicine; ADMIT Internal Medicine; ATTEND Internal Medicine
DX: R07.9 Chest pain, unspecified (principal); I48.91 Unspecified atrial fibrillation; E11.9 Type 2 diabetes mellitus without complications; I10 Essential (primary) hypertension; Z20.822 Contact with and (suspected) exposure to COVID-19; I25.118 Atherosclerotic heart disease of native coronary artery with other forms of angina pectoris; E78.2 Mixed hyperlipidemia; Z98.61 Coronary angioplasty status; E11.40 Type 2 diabetes mellitus with diabetic neuropathy, unspecified; E11.42 Type 2 diabetes mellitus with diabetic polyneuropathy

== ENCOUNTER 2020-10-10 16:45 | Observation (INO) | payer MEDICARE ==
[~2020-10-10] VITALS: Ht 182.9 cm; Wt 127.0 kg
[~2020-10-10 16:45] MED LIST changes: +ARIPIPRAZOLE2 MG PO; +BUSPAR5 MG PO; +TRAZODONE50 MG PO
--- NOTE | 2020-10-10 16:45 | NUR ---
PATIENT SEEN IN LOBBY RIGHT UPPER AND RIGHT LOWER EXTREMITY DRIFT, RIGHT UPPER ATAXIA, RIGHT FACIAL DROOP AND RIGHT ARM SENSATION LOSS. 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 MD NOTIFIED OF PATIENT STATUS AND STROKE ALERT CALLED
[2020-10-10 17:47] LABS: GFR > 60 ML/MIN (>=60 (CALC)); GFR FOR AFR.AMER. > 60 ML/MIN (>=60 (CALC))
--- NOTE | 2020-10-10 17:50 | NUR ---
PT BACK IN ROOM AFTER CT, CTA, CHANGED INTO GOWN, UA COLLETED, PROVIDED BLANKET AWAITING RESULTS
[2020-10-10 17:51] LABS: HEMATOCRIT 39.6 % (39.0-50.0); HEMOGLOBIN 13.3 g/dl (14.0-18.0); IMMATURE GRANULOCYTES 0.3 % (0.0-5.0); MEAN CELL VOLUME 92.1 fL CALC (80.0-100.0); MEAN CORPUSCULAR HGB 30.9 pG CALC (26.0-32.0); MEAN CORPUSCULAR HGB CONC 33.6 g/dL CAL (32.0-36.0); NEUT# 4.43 thou/uL (1.82-7.42); RED BLOOD COUNT 4.3 mill/uL (4.70-6.10); RED CELL DISTRI WIDTH 12.5 % (11.5-15.5)
[2020-10-10 18:07] LABS: ALBUMIN 3.5 g/dL (3.2-5.0); ALKALINE PHOSPHATASE 52 u/l (38-126); ANION GAP 10 (6-22 (CALC)); BILIRUBIN, TOTAL 0.3 mg/dL (0.0-1.4); BUN 14 mg/dL (8-23); BUN/CREATININE RATIO 13 (12-20 (CALC)); CARBON DIOXIDE 27 mmol/l (22-30); CHLORIDE 105 mmol/l (95-108); CREATININE 1.1 mg/dL (0.7-1.3); GFR > 60 ML/MIN (>=60 (CALC)); GFR FOR AFR.AMER. > 60 ML/MIN (>=60 (CALC)); INTERNATIONAL NORMALIZED RATIO 1.4 RATIO (0.7-1.3); POTASSIUM 3.6 mmol/l (3.5-5.1); SGOT/AST 18 u/l (19-48); SODIUM 138 mmol/l (137-146); TOTAL PROTEIN 6.6 g/dL (6.3-8.2)
[2020-10-10 18:18] LABS: MYOGLOBIN 69 ng/mL (0 - 121)
[2020-10-10 18:38] LABS: URINE BILIRUBIN - DIPSTICK NEGATIVE (NEGATIVE); URINE BLOOD DIPSTICK NEGATIVE (NEGATIVE); URINE COLOR YELLOW; URINE GLUCOSE - DIPSTICK 250 mg/dL (NEGATIVE); URINE KETONE NEGATIVE (NEGATIVE); URINE LEUK ESTERASE NEGATIVE (NEGATIVE); URINE PROTEIN - DIPSTICK NEGATIVE (NEG-TRACE); URINE UROBILINOGEN - DIPSTICK 0.2 E.U./dL (0.2)
[2020-10-10 18:40] LABS: URINE NITRITE - DIPSTICK NEGATIVE (Negative)
--- NOTE | 2020-10-10 18:44 | NUR ---
PROVIDER AT BEDSIDE
--- NOTE | 2020-10-10 19:56 | NUR ---
REPORT TO MINDI SLOAN/ICU
--- NOTE | 2020-10-10 20:32 | NUR ---
PT HAD TROUBLE USING URINAL..LINENS CHANGED/GOWN CHANGED. EKG DONE. PT TO FLOOR VIA STRETCHER/MONITORL. NO CHANGE IN STATUS
[2020-10-10 20:45] VITALS: BP 172/63
--- NOTE | 2020-10-10 20:45 | NUR ---
RECEIVED FROM ER VIA STRETCHER AT 2034. PATIENT ABLE TO STAND AND AMBULATE A FEW STEPS FROM STRETCHER TO BED. 2 NURSES ON STAND BY TO ASSIST. PLACED ON SPRAY GUN SIZER SHOWING SR WITH IVCD. ALERT AND OREINTED. SPEECH CLEAR WITH APPROPRIATE RESPONSE TO QUESTIONS. VERY SLT RIGHT FACIAL DROOP NOTED. FOLLOWS DIRECTIONS. SLIGHT DRIFT ON RIGHT EXTREMITIES. LEFT HG AND P/P FIRM, RT HG AND P/P MODERATE STRENGTH. PATIENT DENIES ANY BLURRED OR DOUBLE VISION, NO C/O HEADACHE. DENIES ANY NUMBNESS OR TINGLING. RESP NON-LABORED. LUNGS CLEAR THROUGHOUT. IV IN RAC, NS STARTED AT 100 ML/HR. DISCUSSED PLAN OF CARE. ORIENTED TO USE OF CALL JEAN-BAPTISTE AND BED CONTROLS. CALL JEAN-BAPTISTE IN REACH.
[2020-10-10 21:00] VITALS: BP 188/88
--- NOTE | 2020-10-10 21:15 | NUR ---
PATIENT PROVIDED WITH SANDWICH, PUDDING AND BEVERAGE FOR LIGHT SUPPER.
[2020-10-10 22:00] VITALS: BP 144/90
--- NOTE | 2020-10-10 22:00 | NUR ---
PATIENT BROUGHT HIS CPAP FROM HOME. RT ASSISYED PATIENT WITH PUTTING ON CPAP FOR THE NIGHT.
[2020-10-10 23:00] VITALS: BP 154/70
--- NOTE | 2020-10-10 23:15 | NUR ---
PATIENT SAT AT SIDE OF BED TO USE URINAL. WHILE TRYING TO SIT UP PATIENT ACCIDENTALLY DISLODGED IV IN RAC. 2X2'S SECURED WITH COBAN APPLIED TO SITE. #22 IV STARTED IN LAC BY Carmen ROSA/RED. NS INFUSING TO NEW IV SITE.
[2020-10-11] VITALS (16 sets, daily range): BP systolic 128–198; BP diastolic 62–95
--- NOTE | 2020-10-11 | NUR ---
RESTIGN WITH EYES CLOSED. RESP NON-LABORED.
--- NOTE | 2020-10-11 02:00 | NUR ---
SLEEPING SOUNDLY. CPAP FROM HOME IN USE. RESP NON-LABORED. VSS. SR WITH IVCD ON MONITOR. NS INFUSING WITHOUT INCIDENT.
--- NOTE | 2020-10-11 04:15 | NUR ---
PATIENT SITTING AT SIDE RIGHT SIDE OF BED TO USE URINAL. NEEDED MORE ASSISTANCE THAN PREVIOUSLY WHEN HE GOT UP ON OTHER SIDE OF BED. SPEECH REMAINS CLEAR AND APPROPRIATE. DRIFT TO RIGHT EXTREMITIES PREVIOUSLY. RIGHT HAND MANAGER OF INTERNATIONAL WEAK, LEFT REMAINS STRONG. PATIENT ADVISED TO USE URINAL IN BED FOR TIME BEING. REMINDED OF FALL RISK PRECAUTIONS AND TO CALL FOR ASSISTANCE. CALL JEAN-BAPTISTE IN PLACE,
--- NOTE | 2020-10-11 06:20 | NUR ---
RESTING WITH EYES CLSOED. RESP NON-LABORED. VSS.
[2020-10-11] MEDS ORDERED: LISINOPRIL20 MG PO (07:27)
--- NOTE | 2020-10-11 08:35 | NUR ---
PT SEEN AWAKE, ALERT, ORIENTED X 3. PT WITH RIGHT UPPER EXTREMITY WEAKNESS, STATES THAT HE TRIES TO MOVE IT AND ARM DOES NOT RESPOND NORMALLY. DRIFT NOTED, SENSATION WNL. PUREWICK ATTEMPTED PER INCONTINENCE AND INABILITY TO POSITION HIMSELF TO USE URINAL APPROPRIATELY. PT ATE HALF OF BREAKFAST.
--- NOTE | 2020-10-11 10:12 | NUR ---
PT TO MRI AT THIS TIME FOR EXAM. PT ABLE TO TRANSFER TO WHEELCHAIR ONCE HE WAS HELPED TO HIS FEET, RIGHT ARM SEEN TO DANGLE.
--- NOTE | 2020-10-11 11:25 | NUR ---
PT HAS BEEN TO MRI AND BACK, WAS UNABLE TO FIT INTO MACHINE. DR SCHULTZ AWARE. PT EXPRESSES WEAKNESS TO RIGHT LEG WITH STANDING, RIGHT ARM WEAKNESS CONTINUES. MEAL SERVED, PT ABLE TO EAT LEFT HANDED.
--- NOTE | 2020-10-11 16:12 | NUR ---
PT VISITED BY HIS YOON TODAY. PT CONTINUES BACK AND FORTH TO BED AND CHAIR WITH ONE PERSON ASSIST. HE BEARS WEIGHT WELL WITH RIGHT SIDE, BUT STATES THAT IT FEELS WEAK. PT USES URINAL WITH HOLDING ASSIST, IS ABLE TO SAY WHEN HE NEEDS TO GO AGAIN.
--- NOTE | 2020-10-11 17:50 | NUR ---
PT CONTINUES BEFORE, TO CHAIR THEN TO BED FOR DINNER. PT ANTICIPATING REHAB TO HELP HIS DEFICITS AND HIS BOREDOM. NO DISTRESS NOTED.
--- NOTE | 2020-10-11 19:20 | NUR ---
PATIENT SITTING UP IN RECLINER WITH LEGS ELEVATED. ALERT AND ORIENTED. SPEECH CLEAR WITH APPROPRIATE RESPONSES TO QUESTIONS. SLT RIGHT FACIAL DROOP PRESENT. DRIFT NOTED TO RIGHT EXTREMITIES. PATIENT HAS DIFFICULTY WITH FINE MOVEMENTS OF RIGHT HAND. RIGHT HAND HEAD OF QUALITY WEAK. RESP NON-LABORED. LUNGS CLEAR. SALINE LOCK INTACT TO LAC, SITE BENIGN. DIRECTOR TELEVISION NEWS SHOWS SR WITH IVCD. DISCUSSED PLAN OF CARE. PATIENT SLT ANXIOUS, EXPRESSES FRUSTRATION OVER HIS CONDITION AND WANTS TO GET INTO REHAB. EMOTIONAL SUPPORT AND REASSURANCE PROVIDED. CALL JEAN-BAPTISTE IN REACH.
--- NOTE | 2020-10-11 20:45 | NUR ---
TWO PERSON ASSIST BACK TO BED. PATIENT ASSISTS WITH TRANSFER ABLE. HS ACCU CHECK 200, COVERED PER SS PROTOCOL. PROVIDED PATIENT WITH HS SNACK. PATIENT VOIDS CLEAR YELLOW URINE.
--- NOTE | 2020-10-11 21:00 | NUR ---
APRESOLINE 10 MG IVP GIVEN FOR ELEVATED BP.
--- NOTE | 2020-10-11 22:00 | NUR ---
RESTING IN BED WITH EYES CLOSED. DEVIN USES HIS CPAP FROM HOME FOR THE NIGHT. VSS. RESP NON-LABORED. VSS.
[2020-10-12] VITALS (16 sets, daily range): BP systolic 104–195; BP diastolic 53–84
--- NOTE | 2020-10-12 | NUR ---
RESTING WITH EYES CLOSED. VSS. RESP NON-LABORED.
--- NOTE | 2020-10-12 02:00 | NUR ---
VS REMAINS STABLE. APTIENT RESTING QUIETLY IN BED WITH EYES CLOSED. RESP NON-LABORED. HOME CPAP IN USE.
--- NOTE | 2020-10-12 03:50 | NUR ---
NO CHANGES TO REPORT. PATIENT SLEEPING SOUNDLY. RESP EVEN AND UNALBORED. VSS. SR WITH IVCD ON MONITOR.
--- NOTE | 2020-10-12 06:15 | NUR ---
INCONTINENT OF LARGE AMOUNT OF URINE. COMPLETE BED BATH GIVEN. UP TO CHAIR WITH 2 PERSON ASSIST. REMAINS WITH WEAKNESS OF RIGHT EXTREMITIES.
--- NOTE | 2020-10-12 07:22 | NUR ---
PT SEEN OOB IN CHAIR THIS MORNING, ALERT AND ORIENTED X 3. PT CONTINUES WITH RIGHT SIDED WEAKNESS, SLIGHT DRIFT NOTED TO RIGHT ARM AND FACIAL WEAKNESS ALSO. PT STATES HE MAY NEED LAXATIVE LATER TODAY. ACCUCHECK DONE, INSULIN PROVIDED PER SCALE. PT STATES HIS BLOOD SUGARS HERE HAVE BEEN SOMEWHAT HIGHER THAN AT HOME.
[2020-10-12 08:52] LABS: HEMATOCRIT 41.3 % (39.0-50.0); HEMOGLOBIN 13.8 g/dl (14.0-18.0); MEAN CELL VOLUME 92.6 fL CALC (80.0-100.0); MEAN CORPUSCULAR HGB 30.9 pG CALC (26.0-32.0); MEAN CORPUSCULAR HGB CONC 33.4 g/dL CAL (32.0-36.0); RED BLOOD COUNT 4.46 mill/uL (4.70-6.10); RED CELL DISTRI WIDTH 12.9 % (11.5-15.5)
[2020-10-12 09:08] LABS: ANION GAP 12 (6-22 (CALC)); BUN 13 mg/dL (8-23); BUN/CREATININE RATIO 16 (12-20 (CALC)); CARBON DIOXIDE 23 mmol/l (22-30); CHLORIDE 106 mmol/l (95-108); CREATININE 0.8 mg/dL (0.7-1.3); GFR > 60 ML/MIN (>=60 (CALC)); GFR FOR AFR.AMER. > 60 ML/MIN (>=60 (CALC)); POTASSIUM 3.8 mmol/l (3.5-5.1); SODIUM 137 mmol/l (137-146)
--- NOTE | 2020-10-12 10:00 | NUR ---
PT SEEN BY DR SCHULTZ AND DR LERNER THIS MORNING. PLAN REMAINS TO BE EVALUATED BY THERAPY AND TRANSFERRED TO INPATIENT REHAB. PT OOB IN CHAIR. PT ABLE TO REQUEST URINAL TO BE PLACED NEEDED.
--- NOTE | 2020-10-12 12:32 | NUR ---
PT HAS BEEN TO CT SCAN AND BACK. PT ATTEMPTS TO USE RIGHT HAND DURING MEALS, PARTIAL SUCCESS.
--- NOTE | 2020-10-12 16:10 | NUR ---
PT ENJOYS VISIT WITH YOON AT THIS TIME. PT HAS BEEN SEEN BY SHIRA, PHYSICAL THERAPIST, EVALUATION DONE. PT IS ANXIOUS TO BE TRANSFERRED TO REHAB.
--- NOTE | 2020-10-12 17:40 | NUR ---
HYDRALAZINE PROVIDED PER ELEVATED BLOOD PRESSURE AT THIS TIME. PT SITTING UP FOR MEAL DANGLING LEGS. PT ENCOURAGED BY POSSIBILITY OF GOING TO REHAB TOMORROW.
--- NOTE | 2020-10-12 18:53 | NUR ---
REPORT GIVEN BY MIKE. PATIENT UP IN RECLINER AT BEDSIDE. RESP EVEN AND UNLABORED. NO S/S OF DSITRESS NOTED. FALL AND SAFTEY PRECAUTIONS. IV SALINE LOCKED. NO S/S OD SITRESS NOTED. NEURO CHECKS NEG. NIH 0. PATIENT INFORMED TO CALL WITH ANY QUESTIONS OR CONCERNS. PLAN OF CARE DISCUSSED.
--- NOTE | 2020-10-12 19:00 | NUR ---
REPORT GIVEN BY MIKE. PATIENT ALERT AND ORIENTED. PATIENT RESTING IN BEDSIDE RECLINER. RESP EVEN AND UNLABORED. NO S/S OF DISTRESS NOTED. FALL AND SAFTEY PRECAUTIONS IN PLACE. RIGHT SIDED WEAKNESS PRESENT, NUMBNESS, AND SLIGHT FACIAL DROOP PRESENT. IV SLAINE LOCKED. PLAN OF CARE DISCUSSED. PLAN OF CARE DISCUSSED.
--- NOTE | 2020-10-12 21:02 | NUR ---
purewick and cpap placed on patient for bedtime
--- NOTE | 2020-10-13 | NUR ---
patient up to use the urinal. patient's gown changed and bed linens due to getting urine on them prior to calling the nurse.
--- NOTE | 2020-10-13 02:37 | NUR ---
PATIENT MOVED FROM BED TO RECLINER WITH TWO PERSON ASSIST. INTIALLY ONE NURSE WAS PRESENT HELPING PATIENT GET OUT OF BED, PATIENT WAS UNABLE TO ASSIST NURSE TO SIT UP. PATIENT STATED HE WAS GOING TO REPORT SAID NURSE DUE TO ASKING PATIENT TO HELP ASSIST IN SITTING UP SEVERAL TIMES BECAUSE THE PATIENT WAS TO HEAVY TO LIFT WITHOUT HELP FROM PATIENT. SECONDARY NURSE WAS NEEDED TO HELP PATIENT GET OUT OF BED. PATIENT WAS UNSTEADY ON HIS FEET ONCE UP. PATIENT WAS PLACED IN RECLINER. FALL AND SAFTEY PRECAUTIONS IN PLACE.
--- NOTE | 2020-10-13 04:30 | NUR ---
PATIENT REQUESTING TO BE MOVED FROM THE RECLINER TO THE BED. PATIENT MOVED WITH TWO NURSE MAX ASSIST. FALL AND SAFTEY PRECAUTIONS IN PLACE.
[2020-10-13 05:10] LABS: HEMATOCRIT 42.2 % (39.0-50.0); HEMOGLOBIN 14.2 g/dl (14.0-18.0); MEAN CORPUSCULAR HGB 31.3 pG CALC (26.0-32.0); MEAN CORPUSCULAR HGB CONC 33.6 g/dL CAL (32.0-36.0); RED BLOOD COUNT 4.54 mill/uL (4.70-6.10)
[2020-10-13 05:14] LABS: ANION GAP 14 (6-22 (CALC)); BUN 16 mg/dL (8-23); BUN/CREATININE RATIO 16 (12-20 (CALC)); CARBON DIOXIDE 21 mmol/l (22-30); CHLORIDE 107 mmol/l (95-108); GFR > 60 ML/MIN (>=60 (CALC)); GFR FOR AFR.AMER. > 60 ML/MIN (>=60 (CALC)); POTASSIUM 3.9 mmol/l (3.5-5.1); SODIUM 138 mmol/l (137-146)
[2020-10-13 08:00] VITALS: BP 139/72
[2020-10-13 08:06] VITALS: BP 139/72
--- NOTE | 2020-10-13 08:22 | NUR ---
DR VIVEROS AT BEDSIDE DISCUSSING POC
[2020-10-13] MEDS ORDERED: ATORVASTATIN CA40 MG PO (10:00)
[2020-10-13] MEDS ORDERED: CARVEDILOL25 MG PO (10:02)
--- NOTE | 2020-10-13 12:01 | NUR ---
PT WAS PICKED UP VIA STRETCHER AND WAS TAKEN TO REHAB IN [place]. PATIENT IN STABLE CONDITIONED. DISCARGE INSTRUCTIONS WAS DISCUSSED.
--- NOTE | 2020-10-13 12:18 | NUR ---
REPORT HAS BEEN CALLED TO MAURILIO OBREGON AT [facility] IN[facility]. PT HAS ALREADY LEFT [facility], TOOK BELONGINGS THAT WERE NOT ACCOMPANYING PATIENT. PT DOES LEAVE WITH HIS GLASSES, CLOTHES, C-PAP.
== END 2020-10-13 12:15 ==
LOC: ED 16:45 → ED-I 18:48 → ED 19:02 → ICU 19:03
PROVIDERS: Emergency Medicine; ADMIT Internal Medicine; ATTEND Internal Medicine
DX: I63.9 Cerebral infarction, unspecified (principal); G81.91 Hemiplegia, unspecified affecting right dominant side; R20.2 Paresthesia of skin; R27.0 Ataxia, unspecified; R29.810 Facial weakness; R29.706 NIHSS score 6; I10 Essential (primary) hypertension; E11.9 Type 2 diabetes mellitus without complications; I48.0 Paroxysmal atrial fibrillation; G47.33 Obstructive sleep apnea (adult) (pediatric); E78.5 Hyperlipidemia, unspecified; F32.9 Major depressive disorder, single episode, unspecified; N40.0 Benign prostatic hyperplasia without lower urinary tract symptoms; F41.9 Anxiety disorder, unspecified; E66.01 Morbid (severe) obesity due to excess calories; Z68.38 Body mass index [BMI] 38.0-38.9, adult; Z86.718 Personal history of other venous thrombosis and embolism; Z79.01 Long term (current) use of anticoagulants; Z86.73 Personal history of transient ischemic attack (TIA), and cerebral infarction without residual deficits; Z20.822 Contact with and (suspected) exposure to COVID-19

== ENCOUNTER 2021-03-12 13:39 | Emergency (ER) | payer MEDICARE ==
[~2021-03-12] VITALS: Ht 182.9 cm; Wt 129.0 kg
[~2021-03-12 13:39] MED LIST changes: +ATORVASTATIN CA40 MG PO; +CARVEDILOL25 MG PO
[2021-03-12 14:19] LABS: URINE BILIRUBIN - DIPSTICK NEGATIVE (NEGATIVE); URINE BLOOD DIPSTICK NEGATIVE (NEGATIVE); URINE COLOR YELLOW; URINE GLUCOSE - DIPSTICK NEGATIVE (NEGATIVE); URINE KETONE NEGATIVE (NEGATIVE); URINE LEUK ESTERASE NEGATIVE (NEGATIVE); URINE PH 7.5 (4.5-8.0); URINE PROTEIN - DIPSTICK NEGATIVE (NEG-TRACE); URINE SPECIFIC GRAVITY 1.015
[2021-03-12 14:22] LABS: URINE NITRITE - DIPSTICK NEGATIVE (Negative)
[2021-03-12 15:12] LABS: HEMATOCRIT 37.4 % (39.0-50.0); HEMOGLOBIN 12.4 g/dl (14.0-18.0); IMMATURE GRANULOCYTES 0.3 % (0.0-5.0); MEAN CELL VOLUME 94.7 fL CALC (80.0-100.0); MEAN CORPUSCULAR HGB 31.4 pG CALC (26.0-32.0); MEAN CORPUSCULAR HGB CONC 33.2 g/dL CAL (32.0-36.0); NEUT# 6.94 thou/uL (1.82-7.42); RED BLOOD COUNT 3.95 mill/uL (4.70-6.10)
[2021-03-12 15:30] LABS: ALBUMIN 3.6 g/dL (3.2-5.0); ALKALINE PHOSPHATASE 70 u/l (38-126); ANION GAP 8 (6-22 (CALC)); BILIRUBIN, TOTAL 0.9 mg/dL (0.0-1.4); BUN 14 mg/dL (8-23); BUN/CREATININE RATIO 13 (12-20 (CALC)); CARBON DIOXIDE 31 mmol/l (22-30); CHLORIDE 105 mmol/l (95-108); CREATININE 1.1 mg/dL (0.7-1.3); GFR > 60 ML/MIN (>=60 (CALC)); GFR FOR AFR.AMER. > 60 ML/MIN (>=60 (CALC)); LIPASE 40 u/l (23-300); SGOT/AST 18 u/l (19-48); SODIUM 140 mmol/l (137-146); TOTAL PROTEIN 6.6 g/dL (6.3-8.2)
[2021-03-12 15:31] LABS: INTERNATIONAL NORMALIZED RATIO 1.1 RATIO (0.7-1.3); PROTHROMBIN TIME 11.9 SECONDS (9.0-12.5)
[2021-03-12] MEDS ORDERED: IBUPROFEN600 MG PO (16:39)
[2021-03-12] MEDS ORDERED: FLEXERIL5 M1 PO (16:39)
[2021-03-12 16:58] VITALS: BP 167/79
== END 2021-03-12 17:10 | disposition home or self-care (01) ==
LOC: ED 13:39
DX: S00.03XA Contusion of scalp, initial encounter (principal); S16.1XXA Strain of muscle, fascia and tendon at neck level, initial encounter; S20.211A Contusion of right front wall of thorax, initial encounter; S70.01XA Contusion of right hip, initial encounter; S70.11XA Contusion of right thigh, initial encounter; I10 Essential (primary) hypertension; E11.9 Type 2 diabetes mellitus without complications; I48.91 Unspecified atrial fibrillation; E78.00 Pure hypercholesterolemia, unspecified; W18.30XA Fall on same level, unspecified, initial encounter; Y92.009 Unspecified place in unspecified non-institutional (private) residence as the place of occurrence of the external cause; Z86.73 Personal history of transient ischemic attack (TIA), and cerebral infarction without residual deficits; Z79.01 Long term (current) use of anticoagulants

== ENCOUNTER 2021-08-07 14:03 | Inpatient (IN) | payer MEDICARE ==
[2021-08-07] VITALS (11 sets, daily range): BP systolic 77–169; BP diastolic 54–96
[~2021-08-07] VITALS: Ht 182.9 cm; Wt 137.0 kg
[~2021-08-07 14:03] MED LIST changes: +FLEXERIL5 M1 PO; +IBUPROFEN600 MG PO
--- NOTE | 2021-08-07 14:38 | NUR ---
PT ESCORTED VIA EMS STRETCHER TO ROOM 6 FOR EVAL OF RLE WEAKNESS SINCE FALL YESTERDAY
[2021-08-07 14:43] LABS: HEMOGLOBIN 11.9 g/dl (14.0-18.0); IMMATURE GRANULOCYTES 0.2 % (0.0-5.0); MEAN CELL VOLUME 97.4 fL CALC (80.0-100.0); MEAN CORPUSCULAR HGB 31.3 pG CALC (26.0-32.0); MEAN CORPUSCULAR HGB CONC 32.2 g/dL CAL (32.0-36.0); NEUT# 4.55 thou/uL (1.82-7.42); RED BLOOD COUNT 3.8 mill/uL (4.70-6.10)
[2021-08-07 14:59] LABS: ALBUMIN 3.5 g/dL (3.2-5.0); ALKALINE PHOSPHATASE 82 u/l (38-126); ANION GAP 8 (6-22 (CALC)); BILIRUBIN, TOTAL 0.9 mg/dL (0.0-1.4); BUN 12 mg/dL (8-23); BUN/CREATININE RATIO 12 (12-20 (CALC)); CARBON DIOXIDE 27 mmol/l (22-30); CHLORIDE 108 mmol/l (95-108); GFR > 60 ML/MIN (>=60 (CALC)); GFR FOR AFR.AMER. > 60 ML/MIN (>=60 (CALC)); SGOT/AST 17 u/l (19-48); SODIUM 139 mmol/l (137-146); TOTAL PROTEIN 6.5 g/dL (6.3-8.2)
[2021-08-07 16:31] LABS: URINE BILIRUBIN - DIPSTICK NEGATIVE (NEGATIVE); URINE BLOOD DIPSTICK NEGATIVE (NEGATIVE); URINE COLOR YELLOW; URINE GLUCOSE - DIPSTICK NEGATIVE (NEGATIVE); URINE KETONE NEGATIVE (NEGATIVE); URINE LEUK ESTERASE NEGATIVE (NEGATIVE); URINE NITRITE - DIPSTICK NEGATIVE (Negative); URINE PH 6.5 (4.5-8.0); URINE PROTEIN - DIPSTICK NEGATIVE (NEG-TRACE)
[2021-08-07] MEDS ORDERED: TAMSULOSIN HCL0.4 MG PO (17:46)
[2021-08-07] MEDS ORDERED: TIZANIDINE HYDRO2 MG PO (17:46)
[2021-08-07] MEDS ORDERED: TRAZODONE50 MG PO (17:47)
[2021-08-07] MEDS ORDERED: FAMOTIDINE20 M1 PO (17:47)
[2021-08-07] MEDS ORDERED: LEVEMIR100 UNIT SC (17:48)
[2021-08-07] MEDS ORDERED: XALATAN0.005 % (17:49)
[2021-08-07] MEDS ORDERED: BUSPAR5 MG PO (17:49)
[2021-08-07] MEDS ORDERED: CARVEDILOL25 MG PO (17:50)
--- NOTE | 2021-08-07 18:00 | NUR ---
REDRESSED PATIENT'S RIGHT ARM.
--- NOTE | 2021-08-07 19:17 | NUR ---
REPORT CALLED TO MS. ROOM 271
--- NOTE | 2021-08-07 20:26 | NUR ---
PATIENT ARRIVED ON FLOOR ACCOMPANIED BY ER STAFF X2. PATIENT TRANSFERRED TO BED WITH ASSITANCE X 4 STAFF. ASSSEMENT COMPLETED AT THIS TIME. PT HAS A 22 G IN LEFT WRIST, FLUSHED AND PATENT, A SKIN TEAR TO THE RIGHT ELBOW, NIH SCORE AT THIS TIME IS 0. PLAN OF CARE REVIEWED WITH PATIENT, CALL LIGHT AND BEDSIDE TABLE WITHIN REACH,.
--- NOTE | 2021-08-07 20:26 | NUR ---
REPORT RECEIVED FROM Chandni HADDAD RN.
--- NOTE | 2021-08-07 20:45 | NUR ---
PATIENT CLEANED OF LARGE INCONTINENT EPISODE.
--- NOTE | 2021-08-07 21:45 | NUR ---
RT IN TO MANAGE PT CPAP
[2021-08-08] VITALS (35 sets, daily range): BP systolic 108–183; BP diastolic 54–89
--- NOTE | 2021-08-08 | NUR ---
PATIEN RESTING COMOFRTABLY, CPAP IN PLACE, DENIES ANY CURRENT NEEDS, CALL LIGHT AND BEDSIDE TABLE WITHIN REACH.
--- NOTE | 2021-08-08 04:20 | NUR ---
PATIENT RESTING COMFORTABLY, VOICES NO NEEDS AT THIS TIME. CPAP INTACT AND WORKING PROPERLY, CALL LIGHT AND BEDSIDE TABLE WITHIN REACH.
--- NOTE | 2021-08-08 08:30 | NUR ---
METAL FENCE ERECTOR REPORTED KEVAN SUSTAINING IN 120'S THEN UP TO 160'S, DR VIVEROS NOTIFIED, GAVE VORDERS FOR EKG AND MEDS. PT NEEDS IV ACCESS, STAFF FROM ED HERE TO ASSIST, DR CHINCHILLA NOTIFIED AND PLCED CENTRAL LINE AT THIS TIME. MEDICATION GIVEN (LOPRESSOR 5MG IV). HR RATE DOWN TO 80-120'S AFIB. PT REPORTED DIZZINESS BUT RESOLVED AFTER LOPRESSOR GIVEN. MONITORING CONTINUES
--- NOTE | 2021-08-08 08:35 | NUR ---
MANHOLE STRIPPER AT BEDSIDE TO ATTEMPT IV. #22G RAC PLACED BUT INFILTRATED UPON ADMINISTRATING MEDICATION. #22G RH PLACED, SITE HEALHTY AND PATENT. DR CHINCHILLA CALLED FOR CENTRAL LINE PLACEMENT. DR CHINCHILLA AT BEDSIDE.
--- NOTE | 2021-08-08 08:54 | NUR ---
DR VIVEROS INFORMED OF HR CONTINUING TO REACH 140 WITH PERIODS OF VTACH PER TELE MONITORING. VERBAL ORDERS FOR LOPRESSOR 5 IV X1 DOSE IF SBP >110. ORDER FAXED TO [facility] STAT.
--- NOTE | 2021-08-08 09:27 | NUR ---
DR. VIVEROS INFORMED OF HR REMAINING ELEVATED. PT STATES HE IS NO LONGER SYMPTMATIC. NO ORDERS RECIEVED. MACHINE TAILER INFORMED BY DR VIVEROS OF ARRIVAL IN 5 MIN TO SEE AT BEDSIDE.
--- NOTE | 2021-08-08 11:05 | NUR ---
male pt received to ICU bed 5 via bed from Med Surg accompanied by Cassandra Kessler, RN; assessment completed at this time; pt alert and oriented; denies pain; no n/v noted; resp even and unlabored; lungs clear; skin color wnl; ra; hr irreg; pulses present; afib 110s-140s on monitor; pt with hx of afib; abd soft with bs present; no bm noted per underwriter solicitation director; no urine noted at this time; adult brief cdi; pt admits to urinary/stool incont; #22 to rw saline locked; TLC flushed and patent to RIJ with brisk blood retun from all lumens; no redness or edema noted at site; dressings cdi to rfa; no drainage noted; NIH 0; plan of care/ transfer/meds explained; pt oriented to bed and call light system; bedside report received; call light within reach; will continue to monitor
--- NOTE | 2021-08-08 11:20 | NUR ---
DR VIVEROS ROUNDED, ASSESSED PT, ORDERED TO TRANSFER TO ICU.STAFF TRANSFERRED PT TO ICU BED 5, BEDSIDE REPORT GIVEN TO PAU, PT SETTLED ON UNIT.
--- NOTE | 2021-08-08 11:30 | NUR ---
pt transportation job titles light; pt with complaints of sob; o2 sat 94%; o2 per nc placed; will continue to monitor
--- NOTE | 2021-08-08 11:45 | NUR ---
lunch served; pt rn neonatal light; requesting grilled cheese and tomato soup; kitchen notified;
--- NOTE | 2021-08-08 12:00 | NUR ---
head strength and conditioning coach light; repositioned in bed as per request; sr on monitor; iv intact and patent; cardizem gtt cont at 10mg/hr; call light within reach; will continue to monitor
--- NOTE | 2021-08-08 12:33 | NUR ---
CALLED [facility] AND LEFT A MESSAGE REQUESTING A CALL BACK.
--- NOTE | 2021-08-08 12:50 | NUR ---
RT at bedside for EKG; sr on monitor; MD made aware; cardizem gtt infusing at 5mg/hr; cardizem gtt to cont at 5mg/hr per MD; pt repositioned for comfort; will continue to monitor
--- NOTE | 2021-08-08 13:47 | NUR ---
spouse has been called several times as per pt request; no answer; home cpap set up; will continue to monitor
--- NOTE | 2021-08-08 14:20 | NUR ---
pt transported to ct scan via bed with monitoring attachment in place; magnetic tape typewriter operator remains with pt
--- NOTE | 2021-08-08 14:40 | NUR ---
pt returned to unit in stable condition; monitoring attachments in place; sr on monitor; repositioned; no incont noted; family x2 at bedside; call light within reach; will continue to monitor
--- NOTE | 2021-08-08 16:00 | NUR ---
awake in bed; cpap intact; no apparent distress noted; pt offers no complaints; iv intact; cardizem gtt at 5mg/hr; no redness or edema noted at site; sr on monitor; call light within reach; will continue to monitor
--- NOTE | 2021-08-08 18:01 | NUR ---
resting in bed with eyes closed; no apparent distress noted; iv intact and patent; cardizem gtt cont at 5mg/hr; sr on monitor; cpap intact; call light within reach
--- NOTE | 2021-08-08 20:00 | NUR ---
patient resting in bed. incontinent of bowel and urine. complete bed bath done. HE REMAIN USING HIS OWN CPAP . CARDIZEM AT 5 MG/HR INFUSING PER ORDERED.
[2021-08-09] VITALS (18 sets, daily range): BP systolic 146–187; BP diastolic 57–89
--- NOTE | 2021-08-09 01:00 | NUR ---
PATIENT WOKE UP CONFUSED AND HALLUCINATING. HE IS SEEING SOME NEEDLE HANGING WITH WITH BLUE FEATHER .RE-ORIENTED PATIENT .
--- NOTE | 2021-08-09 04:22 | NUR ---
PATIENT WORK UP AGAIN AND CAN NOT REMEMBER WHERE IS AT. HE TRIED TO GET UP IN THE BED THINKING HE IS HOME. PATIENT WAS ORIENTED . CARDIZEM 5 MG/HR REMAIN INFUSING PER ORDERED.
[2021-08-09 05:25] LABS: HEMATOCRIT 35.9 % (39.0-50.0); HEMOGLOBIN 11.7 g/dl (14.0-18.0); MEAN CORPUSCULAR HGB 31.6 pG CALC (26.0-32.0); MEAN CORPUSCULAR HGB CONC 32.6 g/dL CAL (32.0-36.0); RED BLOOD COUNT 3.7 mill/uL (4.70-6.10); RED CELL DISTRI WIDTH 13.2 % (11.5-15.5)
[2021-08-09 05:50] LABS: ANION GAP 10 (6-22 (CALC)); BUN 15 mg/dL (8-23); BUN/CREATININE RATIO 16 (12-20 (CALC)); CARBON DIOXIDE 26 mmol/l (22-30); CHLORIDE 109 mmol/l (95-108); CREATININE 0.9 mg/dL (0.7-1.3); GFR > 60 ML/MIN (>=60 (CALC)); GFR FOR AFR.AMER. > 60 ML/MIN (>=60 (CALC)); MAGNESIUM 1.7 mg/dL (1.6-2.3); POTASSIUM 3.6 mmol/l (3.5-5.1); SODIUM 141 mmol/l (137-146)
--- NOTE | 2021-08-09 07:30 | NUR ---
PT IS RESTING COMFORTABLY. PT IS EASILY AROUSED BY VERBAL STIMULI. PT IS A&O X4. PT HAS NO C/O PAIN, SOB AND DENIES ANY CP. PT IS ON RA O2 @ 94% PT HAS RIJ TRIPLE LUMEN WITH CARDIZEM INFUSING @ 5MG/HR. PT HAS WEAKNESS TO RLE, EQUAL SENSATION. PT SAFETY PRECAUTIONS IN PLACE AND HAS BEEN EDUCATED TO CALL IF NEEDED. PT UNDERSTANDS TO NOT GET OOB W/O ASSISTANCE. WILL CONTINUE TO MONITOR PT CLOSELY.
--- NOTE | 2021-08-09 08:17 | NUR ---
PT HAS BEEN ASSISTED TO SIT UP FOR BREAKFAST, PT NEEDS NO ASSISTANCE WITH MEAL. PT HAD VERY LITTLE, PT NEEDS HAVE BEEN ADDRESSED.
--- NOTE | 2021-08-09 11:02 | NUR ---
PT HAS BEEN ASSISTED OFF OF BEDPAN, PT HAD NO BM. PT CARDIZEM DRIP HAS BEEN OFF ALOMOST 2 HOUR CHON. PT IS SR HR 74. PT HAS NO CHANGE TO ASSESSMENT. PT HAS NO C/O PAIN,SOB OR CP. PT NEEDS HAVE BEEN ADRESSEED. CALLED REPORT TO MS2 AND SPOKE TO SEAN. PT TRANSFERRING TO 272.
[2021-08-09] MEDS ORDERED: COQ10200 MG PO (13:08)
[2021-08-09] MEDS ORDERED: FINASTERIDE5 MG PO (13:10)
[2021-08-09] MEDS ORDERED: VIIBRYD40 MG PO (13:13)
--- NOTE | 2021-08-09 15:59 | NUR ---
PT STABLE AND CURRENTLY RESTING COMFORTABLY WITH NO COMPLAINTS ASSISTED PT ONTO BEDPAN PERSONAL ITEMS AND CALL LIGHT WITHIN REACH FALL PRECATIONS IN PLACE
--- NOTE | 2021-08-09 17:54 | NUR ---
PT TOLERATED WOUND CARE WELL RIGHT ARM WOUND CLEANED WITH STERILE WATER AND COVERED WITH XEROFORM, 4X4, AND KERLIX. NO FURTHER ACTIONS TAKEN AT THIS TIME.
[2021-08-09 18:22] LABS: URINE BILIRUBIN - DIPSTICK NEGATIVE (NEGATIVE); URINE BLOOD DIPSTICK TRACE-LYSED (NEGATIVE); URINE CLARITY CLEAR; URINE COLOR YELLOW; URINE GLUCOSE - DIPSTICK NEGATIVE (NEGATIVE); URINE KETONE NEGATIVE (NEGATIVE); URINE LEUK ESTERASE NEGATIVE (Negative); URINE NITRITE - DIPSTICK NEGATIVE (Negative); URINE PH 6.5 (4.5-8.0); URINE PROTEIN - DIPSTICK NEGATIVE (NEG-TRACE)
--- NOTE | 2021-08-09 19:30 | NUR ---
PATIENT RESTING IN BED AT THIS TIME-AWAKE ALERT AND ORIENTEDX3. PATIENT WITH NO COMPLAINTS AT THIS TIME. TELE MONITOR IN PLACE WITH LAST READING SR-70'S. RIGHT IJ TLC INTACT. SITE APPEARS HEALTHY AT THIS TIME. INCONT OF BOWEL AND BLADDER. PROVIDED WITH PERSONAL HYGEINE CARE WITH SOAP AND WATER. PADS WERE CHANGED. DESSING TO RIGHT FOREARM INTACT. PATIENT STATES THAT HE IS GOING TO REHAB TOMORROW. SAFETY PRECAUTIONS REINFORCED. CALL LIGHT IN REACH. WILL CONT TO MONITOR.
--- NOTE | 2021-08-09 21:00 | NUR ---
GLUCOSE MONITOR WAS 160-MEDICATED WITH HUMALOG 1UNIT SQ PER HUMALOG SS COVERAGE PROTOCOL. LEVEMIR 20UNITS GIVEN ORDERED. PROVIDED WITH HS SNACK. PATIENT USING HOME C-PAP AT HS. SAFETY PRECAUTIONS REINFORCED. CALL LIGHT IN REACH. WILL CONT TO MONITOR.
[2021-08-10] VITALS (24 sets, daily range): BP systolic 104–166; BP diastolic 61–98
--- NOTE | 2021-08-10 00:30 | NUR ---
PATIENT RESTING IN BED-INCONT OF BOWEL AND BLADDER-PERICARE WAS DONE WITH SOAP AND WATER. LINENS WERE CHANGED. CONFUSED TO TIME AND PLACE-REORIENTED EASILY. WEARING HOME C-PAP AT THIS TIME. SAFETY PRECAUTIONS REINFORCED. BED ALARM IN PLACE FOR PATIENT SAFETY. CALL LIGHT IN REACH. WILL CONT TO MONTIOR.
--- NOTE | 2021-08-10 02:26 | NUR ---
PATIENT RESTING IN BED WITH HOME C-PAP IN PLACE. RESPS ARE EVEN AND UNLABORED AT THIS TIME. TELE MONITOR IN PLACE. CALL LIGHT IN REACH. WILL CONT TO JORDON.
--- NOTE | 2021-08-10 04:00 | NUR ---
PATIENT RESSTING IN BED AT THIS TIME WITH HOME C-PAP IN PLACE. EYES ARE CLOSED RESPS ARE EVEN AND UNLABORED. LAB WORK DRAWN FROM RIGHT IJ TLCD-DRAWN FROM [place]OWN PORT WITH GOOD BLOOD RETURN AND FLUSHED WITH SALINE PER PROTOCOL. OTHER 2 PORTS WHITE AND BLUE ALSO FLUSHED PER PROTOCOL WITH SALINE. GOOD BLOOD RETURNS FROM BOTH PORTS. TELE MONITOR IN PLACE WITH LAST READING PACED 87. CALL LIGHT IN REACH. WILL CONT TO MONITOR.
--- NOTE | 2021-08-10 05:07 | NUR ---
PATIENT RESTING IN BED WITH C-PAP IN PL [place]. HR IS ELEVATED IN 120'S. PATIENT MEDICATED WITH METOPROLOL 5MG SLOW IVP ORDERED FOR ELEVATED HR VIA RIGHT IJ. PATIENT WITH NO COMPLAINTS OF PAIN, PALPATATIONS OR SOB AT THIS TIME. CALLED FOR EKG-AWAITING RT TO DO EKG. CALL LIGHT IN REACH. WILL CDNT TO MONITOR.
[2021-08-10 05:36] LABS: HEMATOCRIT 34.6 % (39.0-50.0); HEMOGLOBIN 11.4 g/dl (14.0-18.0); IMMATURE GRANULOCYTES 0.1 % (0.0-5.0); MEAN CELL VOLUME 96.6 fL CALC (80.0-100.0); MEAN CORPUSCULAR HGB 31.8 pG CALC (26.0-32.0); MEAN CORPUSCULAR HGB CONC 32.9 g/dL CAL (32.0-36.0); NEUT# 4.61 thou/uL (1.82-7.42); RED BLOOD COUNT 3.58 mill/uL (4.70-6.10); RED CELL DISTRI WIDTH 13.2 % (11.5-15.5)
[2021-08-10 05:56] LABS: ALBUMIN 2.9 g/dL (3.2-5.0); ALKALINE PHOSPHATASE 74 u/l (38-126); ANION GAP 8 (6-22 (CALC)); BILIRUBIN, TOTAL 0.6 mg/dL (0.0-1.4); BUN 12 mg/dL (8-23); BUN/CREATININE RATIO 13 (12-20 (CALC)); CARBON DIOXIDE 29 mmol/l (22-30); CHLORIDE 107 mmol/l (95-108); CREATININE 0.9 mg/dL (0.7-1.3); GFR > 60 ML/MIN (>=60 (CALC)); GFR FOR AFR.AMER. > 60 ML/MIN (>=60 (CALC)); MAGNESIUM 1.7 mg/dL (1.6-2.3); POTASSIUM 3.5 mmol/l (3.5-5.1); SGOT/AST 16 u/l (19-48); SODIUM 141 mmol/l (137-146); TOTAL PROTEIN 5.6 g/dL (6.3-8.2)
--- NOTE | 2021-08-10 06:00 | NUR ---
PATIENT RESTING IN BED-EKG WAS FAXED TO THE ER MD. EKG SHOWS A-FIB RVR-107. RATE CONT TO FLUXUATE. NO COMPLAINTS AT THIS TIME. WEARING HOME C-PAP. RIGHT TLC IJ INTACT. CALL LIGHT IN REACH. WILL CONT TO MONITOR.
--- NOTE | 2021-08-10 06:30 | NUR ---
HR CONT TO BE ELEVATED. CALL PLACED TO DR. SCHULTZ. NEW ORDERS RECIEVED TO TRANSFER TO ICU-NSG CORE MACHINE TENDER TAWANNA LARA NOTIFIED AND ERNESTINA OBREGON IN ICU AWARE. PATIENT WILL BE TRNASFERRED TO ICU-5 SHORTLY.
--- NOTE | 2021-08-10 07:24 | NUR ---
PATIENT TRANSFERRED TO ICU BED 5 VIA BED WITH PERSONAL BELONGINGS INCLUDING HOME C-PAP. BEDSIDE REPORT GIVEN TO KEVIN OBREGON.
--- NOTE | 2021-08-10 07:30 | NUR ---
PT ARRIVED TO ICU ON HOME CPAP. UPON INSPECTION, FOUND THAT HOME CPAP WAS NOT WORKING. CPAP MASK REMOVED AND PT ASSESSED. OUR BIPAP WAS BROUGHT TO BEDSIDE, WE TROUBLESHOOT IS HOME CPAP. PT STATED THE UNIT FELL LAST NOT WHILE HE WAS ON MED SURG UNIT. RT FOUND LOOSE CONNECTION AND WAS ABLE TO GET HIS HOME UNIT WORKING. PATIENT WAS PLACED BACK ON HOME CPAP. EKG WAS ORDERED AND PERFORMED BY RT. RN AND PHYSICAN UPDATED.
--- NOTE | 2021-08-10 07:32 | NUR ---
RECEIVED PT FROM M/S PT PLACED ON TELE AFIB 130'S. AWAITING CARDIZEM FROM RX. RT IS PLACING PT ON CPAP. PT BP 139/85 O2 97. MONITORING PT.
--- NOTE | 2021-08-10 08:04 | NUR ---
ADMIN 5MG BOLUS PER PHYS. PT HR 130.
--- NOTE | 2021-08-10 08:48 | NUR ---
PT IS RESPONDING WELL TO VERBAL STIMULI. PT FOLLWOING COMMANDS APPROPRIATELY AND IS ANSWERING ORIENTATION QUESTIONS THROUGH CPAP. PT HAS NO C/O PAIN,SOB OR CP. PT IS CALM. PT HAS BEEN REASSURED WHEN HR HAS BEEN CONTROLLED WILL BATHE PT AT PT REQUESTS. PT HAS TELE MONITOR IN PLACE AFIB HR 109. PT HAS SAFETY PRECAUTIONS IN PLACE AND WILL CONTINUE TO MONITOR.
--- NOTE | 2021-08-10 09:01 | NUR ---
SPOKE TO PT AND PROVIDED HER WITH UPDATE. WILL COME VISIT SOME TIME TODAY
--- NOTE | 2021-08-10 10:30 | NUR ---
PT CARDIZEM INCREASED TO 15MG/HR HR 132.
--- NOTE | 2021-08-10 10:52 | NUR ---
Pt transferred to ICU and on Cardizen drip. Will resume therapy per MD order when medical status permits.
--- NOTE | 2021-08-10 11:00 | NUR ---
PT HR 150'S, CARDIZEM BOLUS WAS GIVEN. PT IS BEING CLOSELY MONITORED.
--- NOTE | 2021-08-10 12:15 | NUR ---
PT IS SLEEPING, CPAP IN PLACE PT CARDIZEM HAS BEEN TITRATED TO 10MG, PT HR 87. PT IS RESPONSIVE TO VERBAL STIMULI AND HAS NO C/O AT THIS TIME. PT STATES HE IS TIRED. PT IS CLEAN AND DRY. PT WILL CONTINUE TO BE MONITORED. PT SAFETY PRECAUTIONS ARE IN PLACE.
--- NOTE | 2021-08-10 14:31 | NUR ---
SPOKE TO PHYS. PT IS VTACH 150. CARDIOLOGY TO CONSULTED AND AMIO GTT TO BE STARTED PER AWAITING ORDERS.
--- NOTE | 2021-08-10 15:25 | NUR ---
CARDIZEM STOPPED. AMIO BOLUS GIVEN PER ORDER. 1535- AMIO IV MAINTENANCE BEGAN INFUSING @ 33.3ML/HR.
--- NOTE | 2021-08-10 16:43 | NUR ---
DR GARRIDO ON UNIT. MEDS ORDERED. PT SITTING ON SIDE OF BED, PT HAS NO C/O OF ANY PAIN,CP OR SOB. PT HAS CPAP OFF O2 SAT @ 97% PT HAS CALL LIGHT NEAR AND SAFETY PRECAUTIONS IN PLACE. PT IS BEING MONITORED VERNON.
--- NOTE | 2021-08-10 17:30 | NUR ---
PT HAS FAMILY AT BEDSIDE, PT IS SITTING UP IN BED EATING DINNER NO ASSISTANCE IS NEEDED. PT HAS NO CHANGE TO ASSESSMENT. PT HAS CALL LIGHT NEAR AND HAS DEMONSTRATED THAT HE IS ABLE CALL IF IN NEED. PT HAS NO C/O PAIN,CP OR SOB. PT HAS CPAP NEARBY AND WILL CALL TO BE PLACED ON. PT HAS IV AMIO INFUSING AND PRESCRIBED RATE. WILL CONTINUE TO MONITOR PT.
--- NOTE | 2021-08-10 18:51 | NUR ---
CORRESPONDANING WITH [facility], ORDERS FOR DIJOXIN ARE NOW IN. MED WILL BE ADMINISTERED NOW PER ORDER.
--- NOTE | 2021-08-10 19:00 | NUR ---
REPORT GIVEN BY MINDI ROY. PATIENT RESTING IN BED WITH CPAP IN PLACE. RESP EVEN AND UNLABORED. NO S/S OF DISTRESS NOTED. FALL AND SAFTEY PRECAUTIONS IN PLACE. PLAN OF CARE DISCUSSED. PATIENT INFORMED TO CALL WITH ANY QUESTIONS OR CONCERNS. IV INFUSING AMIODARONE PER PROTOCOL.
--- NOTE | 2021-08-10 19:45 | NUR ---
PATIENT HAD A BM. COMPLETE BED BATH AND LINEN CHANGE PERFORMED AT THIS TIME.
--- NOTE | 2021-08-10 22:04 | NUR ---
PATIENT RESTING IN BED WITH EYES CLOSED. RESP EVEN AND UNLABORED, HOME CPAP IN PLACE. NO S/S OF DISTRESS NOTED. FALL AND SAFTEY PRECAUTIONS IN PLACE.
--- NOTE | 2021-08-11 | NUR ---
PATIENT REQUESTING TO USE THE URINAL, STAFF ASSISTED PATIENT.
--- NOTE | 2021-08-11 02:11 | NUR ---
PATIENT RESTING IN BED WITH EYES CLOSED. RESP EVEN AND UNLABORED, WITH HOME CPAP IN PLACE. NO S/S OF DISTRESS NOTED.
--- NOTE | 2021-08-11 04:02 | NUR ---
PATIENT RESTING WITH EYES CLOSED. RESP EVEN AND UNLABORED. NO S/S OF DISTRESS NOTED.
--- NOTE | 2021-08-11 04:56 | NUR ---
MORNING LABS DRAWN FROM [facility] TLC
[2021-08-11 05:22] LABS: HEMOGLOBIN 11.7 g/dl (14.0-18.0); MEAN CELL VOLUME 97.6 fL CALC (80.0-100.0); MEAN CORPUSCULAR HGB 31.7 pG CALC (26.0-32.0); MEAN CORPUSCULAR HGB CONC 32.5 g/dL CAL (32.0-36.0); RED BLOOD COUNT 3.69 mill/uL (4.70-6.10); RED CELL DISTRI WIDTH 13.4 % (11.5-15.5)
[2021-08-11 05:34] LABS: ANION GAP 6 (6-22 (CALC)); BUN 19 mg/dL (8-23); BUN/CREATININE RATIO 17 (12-20 (CALC)); CARBON DIOXIDE 27 mmol/l (22-30); CHLORIDE 110 mmol/l (95-108); CREATININE 1.1 mg/dL (0.7-1.3); GFR > 60 ML/MIN (>=60 (CALC)); GFR FOR AFR.AMER. > 60 ML/MIN (>=60 (CALC)); POTASSIUM 3.6 mmol/l (3.5-5.1); SODIUM 140 mmol/l (137-146)
--- NOTE | 2021-08-11 08:00 | NUR ---
PATIENT IS A/OX3, ABLE TO MAKE NEEDS KNOWN TO STAFF, 3MM PERRL BILATERAL EYES. DENIES PAIN AT THIS TIME. CLEAR SPEECH. CLEAR LUNG SOUNDS, NORMAL SINUS RYTHEM ON MONITOR. C-PAP IS ON WHEN HE SLEEPS, NO O2 WHEN ALERT. OBESE, NON TENDER ABDOMEN. ACTIVE BOWEL SOUNDS. BM WAS LAST NIGHT PER PATIENT'S RECALL. STRONG PULSES. WEAK RIGHT HAND RUBBER ATTACHER AND STRONG LEFT HAND CONSTITUTIONAL LAW PROFESSOR. NO ARM DRIFTS. WEAK ON BILATERAL LEGS. UNABLE TO HOLD THEM WHEN FOR MORE THAN COUPLE SECONDS WHEN ASKED. BED WAS WET WITH URINE. STATED HE CAN USE THE URINAL HE "MUST HAVE HAD AN ACCIDENT THIS MORNING". URINAL PLACED IN CLOSER REACH. CLEANED PATIENT LOWER HALF. REPLACED SHEETS WITH CLEAN/FRESH SHEETS. VITALS ARE STABLE. SAFETY MEASURES IN PLACE. CALL LIGHT AMD PERSONAL ITEMS WITHIN REACH. WILL CONTINUE TO MONITOR PER HOSPITAL'S POLICY.
--- NOTE | 2021-08-11 09:00 | NUR ---
AT BEDSIDE. UPDATE WAS PROVIDED PER PATIENT'S REQUEST.
--- NOTE | 2021-08-11 09:30 | NUR ---
PATIENT HAD ANOTHER "ACCIDENT". URINATED ON THE BED, STATED "DID NOT FEEL THE URGE TO PEE, GUESS I JUST WENT." CLEANED UP PATIENT, NEW SHEETS PLACED ON BED.
--- NOTE | 2021-08-11 11:39 | NUR ---
Pt therapy continued today per Dr. Bean verbal order (1015) and physical therapist Sunil Alberto. He was resting in bed with CPAP in place, 02sat above 96% during treatment. HR in 70s. AROM ex performed to BLEs in supine 2 x 10 reps including heelslide, hip abd/add, SAQ, hip IR/ER, and ankle dorsiflexion. He moved supine to sit with bed rail and min assist. Sitting on edge of bed with supervision. Sit to and from stand with min assist. He was able to take 4 steps forwrd and backwards with RW x2 with CGA assist for two sessions. Pt fatiqued after performing 8 steps requiring rest period. Pt returned to supine with SBA and was able to adjust himself in bed (scooting, turning) with min assist. Pt noted to be incont of urine and heather area cleaned, nursing aware. Time spent with pt 40 min. A- Pt with weakness and decreased mobility. He would benefit from Rehab to return to [facility]. [facility] P- Will continue to follow for strengthening and mobility.
--- NOTE | 2021-08-11 12:00 | NUR ---
PATIENT REFUSED TO EAT STATED "MAYBE LATER, IM STILL VERY TIRED."
--- NOTE | 2021-08-11 14:00 | NUR ---
PATIENT CONTINUES TO SLEEP, LUNCH WAS OFFERED AGAIN, PATIENT REFUSED. FRESH ICE WATER WAS PLACED ON HIS BEDSIDE TABLE.
--- NOTE | 2021-08-11 16:00 | NUR ---
patient ate his lunch, warmed in microwave, 100% ate.
--- NOTE | 2021-08-11 16:00 | NUR ---
PATIENT'S FAMILY IS AT BEDSIDE.
--- NOTE | 2021-08-11 18:00 | NUR ---
PATIENT IS EATING DINNER AT BEDSIDE WITH IN THE ROOM.
--- NOTE | 2021-08-11 20:00 | NUR ---
RECEIVED PATIENT ON ROOM AIR. SATURATION OF 95% . INCONTINENT OF STOOL AND URINE. HE DENIES ANY PAIN OR DISCOMFORT AT THIS TIME.
--- NOTE | 2021-08-11 22:00 | NUR ---
PATIENT COMPLAIN OF UNABLE TO SLEEP . CALL PLACED TO DR. TELLEZ ORDER NOTED.
--- NOTE | 2021-08-11 23:18 | NUR ---
PATIENT GIVEN A SLEEPING PILLS PER REQUESTED. HE WAS GIVEN METOPROLOL 5 MG I.V FOR ELEVATED B/P. NOTIFIED DR. ANTONIO ABOUT PATIENT CONDITION .
[2021-08-12 05:59] LABS: HEMATOCRIT 35.6 % (39.0-50.0); HEMOGLOBIN 11.4 g/dl (14.0-18.0); MEAN CELL VOLUME 97.8 fL CALC (80.0-100.0); MEAN CORPUSCULAR HGB 31.3 pG CALC (26.0-32.0); RED BLOOD COUNT 3.64 mill/uL (4.70-6.10); RED CELL DISTRI WIDTH 13.5 % (11.5-15.5)
[2021-08-12 06:07] LABS: ANION GAP 7 (6-22 (CALC)); BUN 18 mg/dL (8-23); BUN/CREATININE RATIO 19 (12-20 (CALC)); CARBON DIOXIDE 25 mmol/l (22-30); CHLORIDE 111 mmol/l (95-108); GFR > 60 ML/MIN (>=60 (CALC)); GFR FOR AFR.AMER. > 60 ML/MIN (>=60 (CALC)); MAGNESIUM 1.8 mg/dL (1.6-2.3); POTASSIUM 3.8 mmol/l (3.5-5.1); SODIUM 139 mmol/l (137-146)
--- NOTE | 2021-08-12 07:30 | NUR ---
PATIENT HAD A LARGE , LOOSE, BOWEL MOVEMENT
--- NOTE | 2021-08-12 07:45 | NUR ---
REQUESTED TO BE ADJUSTED IN BED.
--- NOTE | 2021-08-12 08:00 | NUR ---
PATIENT A/O X3, ABLE TO MAKE NEEDS KNOWN TO STAFF, DENIES PAIN AT THIS TIME. 3MM PERRL BILATERAL EYES. CLEAR SPEECH. CLEAR LUNG SOUNDS. ACTIVE BOWEL SOUNDS. BOWEL MOVEMENT THIS MORNING, LARGE, LOOSE, BROWN. ROUND SOFT ABDOMEN. WEAK RIGHT HAND SENIOR RISK MANAGER, LEFT HAND SENIOR RISK MANAGER STRONG. NO ARM DRIFTS, UNABLE TO HOLD UP LEGS FOR MORE THAN A COUPLE SECONDS. NO EDEMA PRESENT AT THIS TIME. STRONG PULSES. safety measures in place. vital signs are stable. continues to run sinus rythem. call light in reach. will continue to monitor per hospital's policy.
[2021-08-12 08:04] VITALS: BP 177/85
--- NOTE | 2021-08-12 08:30 | NUR ---
PATIENT HAD ANOTHER BOWEL MOVEMENT. FELT IT COMING OUT, DID NOT FEEL THE URGE TO GO PRIOR TO "ACCIDENT".
[2021-08-12] MEDS ORDERED: ATORVASTATIN CA40 MG PO (08:51)
[2021-08-12] MEDS ORDERED: CORDARONE/200 MG/TAB PO (08:51)
--- NOTE | 2021-08-12 09:00 | NUR ---
INFORMED HIM TO GET UP IN TO THE CHAIR, EDUCTION WAS GIVEN OF IT'S IMPORTANCE. USED WALKER TO HELP, WAS UNSTEADY BUT DID MOVE WITH MINIUMAL HELP. SAEFTY MEASURES APPLIED, SAFE TRANSFER TO CHAIR.
--- NOTE | 2021-08-12 09:20 | NUR ---
PATIENT WAS ASKING TO BE PLACED BACK IN BED, I STATED ITS ONLY BEEN A FEW MINTUES YOU NEED TO CONTINUE TO SIT UP, THAT HES BEEN IN BED THIS ENTIRE STAY IN THE ICU. LUCKILY PT CAME IN TO HELP HIM MOVE AROUND MORE.
--- NOTE | 2021-08-12 09:54 | NUR ---
Pt seen this am for treatment. He was OOB in chair, reported not sleeping well and for transfer to rehab today. Pt moved sit to stand with mod assist x1 from chair and min assist from bed. He was able to ambulate 2x8' with CGA/min assist x 1 with verbal cues to stand tall and lift R foot. After 8' pt request sitting, just too tried. AROM ex performed in sitting including marching. ankle DF 3x10 reps, LAQ and hip abd/add 2x10 reps. Gentle heelcord and hamstring stretch done bilaterally x 3 reps 15sec hold. Pt BP 148/84, 02 sats 91-98%, HR 78-80. Pt was on room air. He was left in chair with call huffman/tray in reach. Time spent with pt 40 min A- Pt with limited mobility, decrease strength. [facility]. P- Will follow until D/C to rehab.
--- NOTE | 2021-08-12 10:00 | NUR ---
AT BEDSIDE, PATIENT REMIANS IN THE CHAIR.
--- NOTE | 2021-08-12 10:50 | NUR ---
PATIENT REQUESTED TO BE PLACED BACK IN BED, STATED HE FEELS "STUCK IN THE CHAIR".
--- NOTE | 2021-08-12 11:00 | NUR ---
PATIENT ASKED TO BE ADJUSTED IN BED.
--- NOTE | 2021-08-12 11:10 | NUR ---
PATIENT ASKED TO BE ADJUSTED IN BED.
--- NOTE | 2021-08-12 11:13 | NUR ---
PATIENT HAD ANOTHER BOWEL MOVEMENT, STATED "IT JUST COMES RIGHT OUT". LARGE, BROWN LOOSE STOOL.
--- NOTE | 2021-08-12 12:47 | NUR ---
PATIENT IS SITTING UP IN BED, EATING LUNCH, BY HIS SIDE. DISCHARGED PAPERWORK WAS PROVIDED, EDUCATION GIVEN, PATIENT AND STATED THEY UNDERSTOOD AND SIGNED THE FORM.
--- NOTE | 2021-08-12 13:00 | NUR ---
PATIENT IS WITH [facility] TRANSFER STAFF MEMEBERS, LOADING ONTO STRETCHER, FACE MASK IS PLACED OVER HIS MOUTH PER POLICY. STABLE. NORMAL SINUS RYTHEM. AT BEDSIDE.
--- NOTE | 2021-08-12 13:20 | NUR ---
CALLED, LEFT VOICEMAIL FOR A NURSE TO CALL ME BACK FROM THE REHAB.
--- NOTE | 2021-08-12 14:00 | NUR ---
REICEVED VERBAL ORDER TO REMOVE CENTRAL LINE FROM PATIENT.
--- NOTE | 2021-08-12 14:20 | NUR ---
GAVE OFF REPORT ON PATIENT TO FACILITY NURSE "BHUMI".
== END 2021-08-12 13:13 | DRG 69 ==
LOC: ED 14:03 → ED-I 15:30 → ED 16:46 → ED-I 16:47 → MS2 16:48 → ICU 08-08 11:05 → MS2 08-09 11:25 → ICU 08-10 07:26
PROVIDERS: Family Medicine; Internal Medicine; Nurse Practitioner; ADMIT Hospitalist; ATTEND Internal Medicine
PROC: 02HV33Z Insertion of Infusion Device into Superior Vena Cava, Percutaneous Approach (ICD-10-PCS; principal; 2021-08-08)
DX: G45.9 Transient cerebral ischemic attack, unspecified (principal); I69.951 Hemiplegia and hemiparesis following unspecified cerebrovascular disease affecting right dominant side; Z68.41 Body mass index [BMI] 40.0-44.9, adult; I48.19 Other persistent atrial fibrillation; I10 Essential (primary) hypertension; E11.9 Type 2 diabetes mellitus without complications; I48.91 Unspecified atrial fibrillation; I25.10 Atherosclerotic heart disease of native coronary artery without angina pectoris; I44.4 Left anterior fascicular block; E78.5 Hyperlipidemia, unspecified; G47.33 Obstructive sleep apnea (adult) (pediatric); I45.10 Unspecified right bundle-branch block; E66.01 Morbid (severe) obesity due to excess calories; F32.A Depression, unspecified; Z86.718 Personal history of other venous thrombosis and embolism; Z79.01 Long term (current) use of anticoagulants; Z79.4 Long term (current) use of insulin; Z79.899 Other long term (current) drug therapy; Z20.822 Contact with and (suspected) exposure to COVID-19
CPT/HCPCS: G0378; J0282; J1160; J3475

== ENCOUNTER 2022-01-10 13:34 | Observation (INO) | payer MEDICARE ==
[~2022-01-10] VITALS: Ht 182.9 cm; Wt 185.0 kg
[2022-01-10] VITALS (17 sets, daily range): BP systolic 133–204; BP diastolic 56–171
[~2022-01-10 13:34] MED LIST changes: +COQ10200 MG PO; +CORDARONE/200 MG/TAB PO; +FAMOTIDINE20 M1 PO; +FINASTERIDE5 MG PO; +LEVEMIR100 UNIT SC; +TAMSULOSIN HCL0.4 MG PO; +TIZANIDINE HYDRO2 MG PO; +XALATAN0.005 %
--- NOTE | 2022-01-10 13:54 | NUR ---
PT ED RM 4, NO DISTRESS
[2022-01-10 14:10] LABS: HEMATOCRIT 35.3 % (39.0-50.0); HEMOGLOBIN 11.9 g/dl (14.0-18.0); IMMATURE GRANULOCYTES 0.2 % (0.0-5.0); MEAN CELL VOLUME 95.7 fL CALC (80.0-100.0); MEAN CORPUSCULAR HGB 32.2 pG CALC (26.0-32.0); MEAN CORPUSCULAR HGB CONC 33.7 g/dL CAL (32.0-36.0); NEUT# 6.88 thou/uL (1.82-7.42); RED BLOOD COUNT 3.69 mill/uL (4.70-6.10); RED CELL DISTRI WIDTH 13.2 % (11.5-15.5)
[2022-01-10 14:52] LABS: ALBUMIN 3.3 g/dL (3.2-5.0); ALKALINE PHOSPHATASE 74 u/l (38-126); ANION GAP 11 (6-22 (CALC)); BILIRUBIN, TOTAL 0.7 mg/dL (0.0-1.4); BUN 11 mg/dL (8-23); BUN/CREATININE RATIO 10 (12-20 (CALC)); CARBON DIOXIDE 28 mmol/l (22-30); CHLORIDE 108 mmol/l (95-108); CREATININE 1.1 mg/dL (0.7-1.3); GFR FOR AFR.AMER. > 60 ML/MIN (>=60 (CALC)); GFR OTHER RACES > 60 ML/MIN (>=60 (CALC)); POTASSIUM 3.3 mmol/l (3.5-5.1); SGOT/AST 18 u/l (19-48); SODIUM 143 mmol/l (137-146)
[2022-01-10 16:37] LABS: URINE BILIRUBIN - DIPSTICK NEGATIVE (NEGATIVE); URINE BLOOD DIPSTICK LARGE (NEGATIVE); URINE COLOR YELLOW; URINE GLUCOSE - DIPSTICK NEGATIVE (NEGATIVE); URINE KETONE NEGATIVE (NEGATIVE); URINE PH 6.5 (4.5-8.0); URINE PROTEIN - DIPSTICK TRACE mg/dL (NEG-TRACE); URINE SPECIFIC GRAVITY 1.025
[2022-01-10 16:39] LABS: URINE LEUK ESTERASE SMALL (NEGATIVE); URINE NITRITE - DIPSTICK NEGATIVE (Negative)
[2022-01-10 16:53] LABS: URINE WBC 50-100 WBC/hpf (0-5)
--- NOTE | 2022-01-10 20:31 | NUR ---
Report called to [facility] RN patient to be transported via stretcher with nurse on cardiac tele.
[2022-01-10] MEDS ORDERED: XARELTO20 MG PO (21:44)
[2022-01-10] MEDS ORDERED: CORDARONE/200 MG/TAB PO (21:47)
[2022-01-11 00:09] VITALS: BP 152/63
[2022-01-11 05:00] VITALS: BP 160/69
--- NOTE | 2022-01-11 05:14 | NUR ---
21:54 PATIENT ARRIVED TO ROOM 274 VIA STRETCHER WITH ESCORT FROM ED AWAKE AND ALERT WITH DIAGNONSIS OF UTI. PATIENT DENIES ANY S/S OF DISCOMFORT.PATIENT ORIENTED TO ROOM AND CALL SYSTEMS. POC DISCUSSED WITH PATIENT. NO FAMILY MEMBER PRESENT.
[2022-01-11 06:03] LABS: HEMATOCRIT 35.3 % (39.0-50.0); HEMOGLOBIN 11.5 g/dl (14.0-18.0); IMMATURE GRANULOCYTES 0.4 % (0.0-5.0); MEAN CORPUSCULAR HGB 32.6 pG CALC (26.0-32.0); MEAN CORPUSCULAR HGB CONC 32.6 g/dL CAL (32.0-36.0); NEUT# 4.84 thou/uL (1.82-7.42); RED BLOOD COUNT 3.53 mill/uL (4.70-6.10)
[2022-01-11 06:31] LABS: ANION GAP 12 (6-22 (CALC)); BUN 13 mg/dL (8-23); BUN/CREATININE RATIO 13 (12-20 (CALC)); CARBON DIOXIDE 23 mmol/l (22-30); CHLORIDE 109 mmol/l (95-108); GFR FOR AFR.AMER. > 60 ML/MIN (>=60 (CALC)); GFR OTHER RACES > 60 ML/MIN (>=60 (CALC)); MAGNESIUM 1.9 mg/dL (1.6-2.3); POTASSIUM 3.6 mmol/l (3.5-5.1); SODIUM 141 mmol/l (137-146)
--- NOTE | 2022-01-11 08:00 | NUR ---
PT RESTING IN RECLINER STATES WITH TELE MONITOR IN PLACE, CONTINOUS MONITORING PER ED. ASSESSMENT PERFORMED. UPDATED PT ON CURRENT PLAN OF CARE. GLUCOSE CHECK 134 NO COVERAGE NEEDED PER SLIDING SCALE. IV PATENT. FALL/SAFTEY PRECAUTION IN PLACE, CALL LIGHT WITHIN REACH
--- NOTE | 2022-01-11 09:45 | NUR ---
pt consented to receive pneumonia vaccine. Pt completed pneumonia vaccine series in 2018. No further doses recommended at this time.
[2022-01-11 11:12] VITALS: BP 156/62
--- NOTE | 2022-01-11 13:39 | NUR ---
PT RESTING IN BED SLEEPING WITH CPAP IN PLACE. BREATHING IS EVEN AND UNLABORED. NO DISTRESS NOTED. FALL/SAFTEY PRECAUTION IN PLACE. CALL LIGHT WITHIN REACH
--- NOTE | 2022-01-11 15:21 | NUR ---
FAMILY MEMBERS AT BEDSIDE. IV PATENT. TELE MONITOR IN PLACE, CONTINOUS MONITORING PER ED. GLUCOSE CHECK: 116, NO COVERAGE NEEDED PER SLIDING SCALE. NO DISTRESS NOTED. FALL/SAFTEY PRECAUTION IN PLACE. CALL LIGHT WITHIN REACH
[2022-01-11] MEDS ORDERED: OMNICEF300 MG PO (15:52)
[2022-01-11 15:58] VITALS: BP 174/65
--- NOTE | 2022-01-11 17:20 | NUR ---
GLUCOSE CHECK: 130 NO COVERAGE NEEDED PER SLIDING SCALE. STATES NO NEEDS AT THIS TIME. FALL/SAFTEY PRECAUTION IN PLACE, CALL LIGHT WITHIN REACH
[2022-01-11 18:47] VITALS: BP 150/61
[2022-01-11 19:00] VITALS: BP 150/61
--- NOTE | 2022-01-11 19:49 | NUR ---
Received patient up seated in recliner chair awake and alert. Patient denies any s/s of pain or discomfort. Patient assisted back to bed with 2 people assist. condom cath in place.
[2022-01-12 00:10] VITALS: BP 163/63
[2022-01-12 04:13] VITALS: BP 163/71
[2022-01-12 06:45] VITALS: BP 184/70
[2022-01-12 08:30] VITALS: BP 162/60
[2022-01-12 08:31] VITALS: BP 162/60
--- NOTE | 2022-01-12 08:35 | NUR ---
PT SITTING IN RECLINER UPON ENTERING ROOM. ASSESSMENT PERFORMED. TELE MONITOR IN PLACE, CONTINOUS MONITORING PER ED. IV PATENT/FLUSHED. UPDATED PT IN CURRENT PLAN OF CARE. STATES NO QUESTIONS/ CONCERNS AT THIS TIME. GLUCOSE CHECK: 100 NO COVERAGE NEEDED PER SLIDING SCALE. BP THIS MORNING @0644 184/70 REASSESSED 162/60. MEDICATED SEE EMAR. FALL/SAFTEY PRECAUITON IN PLACE. CALL LIGHT WITHIN REACH.
--- NOTE | 2022-01-12 12:50 | NUR ---
PT SITTING IN RECLINER WATCHING TV. BREATHING EVEN AND UNLABORED. STATES NO NEEDS AT THIS TIME. FALL/SFATEY PRECAUTION IN PLACE, CALL LIGHT WITHIN REACH
--- NOTE | 2022-01-12 14:20 | NUR ---
Discharge instructions given. Patient verbalizes understanding of same. Discharged in condition via Wheelchair to [facility] with staff. All belongings sent with pt. TELE MONITOR REMOVED TO ROLL LINE OPERATOR
== END 2022-01-12 14:20 ==
LOC: ED 13:34 → ED-I 17:03 → MS2 17:12 → ED 17:12 → MS2 01-12 14:20
PROVIDERS: Family Medicine; Nurse Practitioner; ADMIT Internal Medicine; ATTEND Internal Medicine
DX: N39.0 Urinary tract infection, site not specified (principal); I10 Essential (primary) hypertension; E11.9 Type 2 diabetes mellitus without complications; I48.91 Unspecified atrial fibrillation; E78.00 Pure hypercholesterolemia, unspecified; F32.A Depression, unspecified; G47.33 Obstructive sleep apnea (adult) (pediatric); N40.0 Benign prostatic hyperplasia without lower urinary tract symptoms; K21.9 Gastro-esophageal reflux disease without esophagitis; B96.4 Proteus (mirabilis) (morganii) as the cause of diseases classified elsewhere; Z79.4 Long term (current) use of insulin; Z86.73 Personal history of transient ischemic attack (TIA), and cerebral infarction without residual deficits; Z79.01 Long term (current) use of anticoagulants; Z86.718 Personal history of other venous thrombosis and embolism; Z20.822 Contact with and (suspected) exposure to COVID-19
CPT/HCPCS: G0378

== ENCOUNTER 2022-02-28 20:19 | Emergency (ER) | payer MEDICARE ==
[~2022-02-28] VITALS: Ht 182.9 cm; Wt 132.0 kg
[~2022-02-28 20:19] MED LIST changes: +OMNICEF300 MG PO; +XARELTO20 MG PO
[2022-02-28 20:33] VITALS: BP 173/70
[2022-02-28 20:46] VITALS: BP 151/68
[2022-02-28 21:00] VITALS: BP 159/106
[2022-02-28 21:16] VITALS: BP 151/73
[2022-02-28 21:22] LABS: HEMATOCRIT 33.2 % (39.0-50.0); HEMOGLOBIN 10.9 g/dl (14.0-18.0); IMMATURE GRANULOCYTES 0.3 % (0.0-5.0); MEAN CELL VOLUME 100.9 fL CALC (80.0-100.0); MEAN CORPUSCULAR HGB 33.1 pG CALC (26.0-32.0); MEAN CORPUSCULAR HGB CONC 32.8 g/dL CAL (32.0-36.0); NEUT# 4.24 thou/uL (1.82-7.42); RED BLOOD COUNT 3.29 mill/uL (4.70-6.10); RED CELL DISTRI WIDTH 13.8 % (11.5-15.5)
[2022-02-28 21:34] LABS: URINE BILIRUBIN - DIPSTICK NEGATIVE (NEGATIVE); URINE BLOOD DIPSTICK NEGATIVE (NEGATIVE); URINE COLOR YELLOW; URINE GLUCOSE - DIPSTICK NEGATIVE (NEGATIVE); URINE KETONE NEGATIVE (NEGATIVE); URINE LEUK ESTERASE NEGATIVE (NEGATIVE); URINE PROTEIN - DIPSTICK NEGATIVE (NEG-TRACE); URINE SPECIFIC GRAVITY 1.025
[2022-02-28 21:35] LABS: ALBUMIN 3.1 g/dL (3.2-5.0); ALKALINE PHOSPHATASE 66 u/l (38-126); BUN 14 mg/dL (8-23); BUN/CREATININE RATIO 13 (12-20 (CALC)); CHLORIDE 109 mmol/l (95-108); CREATININE 1.1 mg/dL (0.7-1.3); GFR FOR AFR.AMER. > 60 ML/MIN (>=60 (CALC)); GFR OTHER RACES > 60 ML/MIN (>=60 (CALC)); POTASSIUM 3.6 mmol/l (3.5-5.1); SODIUM 141 mmol/l (137-146); TOTAL PROTEIN 5.8 g/dL (6.3-8.2)
[2022-02-28 21:36] LABS: MAGNESIUM 1.7 mg/dL (1.6-2.3)
[2022-02-28 21:39] LABS: ANION GAP 7 (6-22 (CALC)); BILIRUBIN, TOTAL 0.3 mg/dL (0.0-1.4); CARBON DIOXIDE 29 mmol/l (22-30); SGOT/AST 32 u/l (19-48)
[2022-02-28 21:40] LABS: URINE NITRITE - DIPSTICK NEGATIVE (Negative)
[2022-02-28 22:06] LABS: TSH, 3RD GENERATION 3.35 uIU/mL (0.47 - 4.68)
[2022-02-28] MEDS ORDERED: [UNRECOGNIZED DRUG - SUPPLY] XX (22:21)
[2022-02-28 22:32] VITALS: BP 151/73
== END 2022-02-28 22:51 | disposition home or self-care (01) ==
LOC: ED 20:19
PROVIDERS: Family Medicine
DX: R60.0 Localized edema (principal); I10 Essential (primary) hypertension; E11.9 Type 2 diabetes mellitus without complications; I48.91 Unspecified atrial fibrillation; E78.00 Pure hypercholesterolemia, unspecified; F32.A Depression, unspecified; N40.0 Benign prostatic hyperplasia without lower urinary tract symptoms; Z86.73 Personal history of transient ischemic attack (TIA), and cerebral infarction without residual deficits; Z87.442 Personal history of urinary calculi

== ENCOUNTER 2022-03-03 19:51 | Inpatient (IN) | payer MEDICARE ==
[~2022-03-03] VITALS: Ht 182.9 cm; Wt 126.4 kg
[~2022-03-03 19:51] MED LIST changes: +[UNRECOGNIZED DRUG - SUPPLY] XX
[2022-03-03 21:08] LABS: HEMATOCRIT 34.1 % (39.0-50.0); HEMOGLOBIN 11.4 g/dl (14.0-18.0); IMMATURE GRANULOCYTES 0.1 % (0.0-5.0); MEAN CELL VOLUME 99.7 fL CALC (80.0-100.0); MEAN CORPUSCULAR HGB 33.3 pG CALC (26.0-32.0); MEAN CORPUSCULAR HGB CONC 33.4 g/dL CAL (32.0-36.0); NEUT# 5.42 thou/uL (1.82-7.42); RED BLOOD COUNT 3.42 mill/uL (4.70-6.10); RED CELL DISTRI WIDTH 13.8 % (11.5-15.5)
[2022-03-03 21:21] LABS: ALBUMIN 3.4 g/dL (3.2-5.0); ALKALINE PHOSPHATASE 78 u/l (38-126); ANION GAP 9 (6-22 (CALC)); BILIRUBIN, TOTAL 0.3 mg/dL (0.0-1.4); BUN 17 mg/dL (8-23); BUN/CREATININE RATIO 13 (12-20 (CALC)); CARBON DIOXIDE 29 mmol/l (22-30); CHLORIDE 109 mmol/l (95-108); CREATININE 1.3 mg/dL (0.7-1.3); GFR FOR AFR.AMER. > 60 ML/MIN (>=60 (CALC)); GFR OTHER RACES 54 ML/MIN (>=60 (CALC)); POTASSIUM 3.5 mmol/l (3.5-5.1); SGOT/AST 22 u/l (19-48); SODIUM 143 mmol/l (137-146); TOTAL PROTEIN 6.1 g/dL (6.3-8.2)
[2022-03-03 21:33] LABS: MYOGLOBIN 78 ng/mL (0 - 121)
[2022-03-03 21:41] LABS: URINE BILIRUBIN - DIPSTICK NEGATIVE (NEGATIVE); URINE BLOOD DIPSTICK SMALL (NEGATIVE); URINE COLOR YELLOW; URINE GLUCOSE - DIPSTICK NEGATIVE (NEGATIVE); URINE KETONE NEGATIVE (NEGATIVE); URINE LEUK ESTERASE NEGATIVE (NEGATIVE); URINE PROTEIN - DIPSTICK NEGATIVE (NEG-TRACE)
[2022-03-03 21:43] LABS: URINE NITRITE - DIPSTICK NEGATIVE (Negative)
[2022-03-03 21:49] LABS: URINE WBC 0-2 WBC/hpf (0-5)
[2022-03-04] VITALS (10 sets, daily range): BP systolic 136–176; BP diastolic 55–84
[2022-03-05 04:11] VITALS: BP 154/64
[2022-03-05 07:03] VITALS: BP 148/68
[2022-03-05 10:30] VITALS: BP 140/66
[2022-03-05 15:12] VITALS: BP 141/54
[2022-03-05 18:56] VITALS: BP 153/70
[2022-03-05 23:56] VITALS: BP 172/76
[2022-03-06] VITALS (49 sets, daily range): BP systolic 77–168; BP diastolic 45–108
[2022-03-06 05:21] LABS: HEMATOCRIT 32.9 % (39.0-50.0); MEAN CELL VOLUME 100.6 fL CALC (80.0-100.0); MEAN CORPUSCULAR HGB 33.6 pG CALC (26.0-32.0); MEAN CORPUSCULAR HGB CONC 33.4 g/dL CAL (32.0-36.0); RED BLOOD COUNT 3.27 mill/uL (4.70-6.10); RED CELL DISTRI WIDTH 13.8 % (11.5-15.5)
[2022-03-06 05:49] LABS: ANION GAP 6 (6-22 (CALC)); BUN 17 mg/dL (8-23); BUN/CREATININE RATIO 17 (12-20 (CALC)); CARBON DIOXIDE 28 mmol/l (22-30); CHLORIDE 111 mmol/l (95-108); GFR FOR AFR.AMER. > 60 ML/MIN (>=60 (CALC)); GFR OTHER RACES > 60 ML/MIN (>=60 (CALC)); MAGNESIUM 1.8 mg/dL (1.6-2.3); POTASSIUM 3.2 mmol/l (3.5-5.1); SODIUM 142 mmol/l (137-146)
[2022-03-07] VITALS (14 sets, daily range): BP systolic 118–167; BP diastolic 53–82
[2022-03-07 05:00] LABS: HEMATOCRIT 35.1 % (39.0-50.0); HEMOGLOBIN 11.5 g/dl (14.0-18.0); MEAN CELL VOLUME 100.3 fL CALC (80.0-100.0); MEAN CORPUSCULAR HGB 32.9 pG CALC (26.0-32.0); MEAN CORPUSCULAR HGB CONC 32.8 g/dL CAL (32.0-36.0); RED BLOOD COUNT 3.5 mill/uL (4.70-6.10); RED CELL DISTRI WIDTH 13.8 % (11.5-15.5)
[2022-03-07 05:28] LABS: ANION GAP 8 (6-22 (CALC)); BUN 16 mg/dL (8-23); BUN/CREATININE RATIO 17 (12-20 (CALC)); CARBON DIOXIDE 28 mmol/l (22-30); CHLORIDE 110 mmol/l (95-108); CREATININE 0.9 mg/dL (0.7-1.3); GFR FOR AFR.AMER. > 60 ML/MIN (>=60 (CALC)); GFR OTHER RACES > 60 ML/MIN (>=60 (CALC)); MAGNESIUM 1.9 mg/dL (1.6-2.3); POTASSIUM 3.2 mmol/l (3.5-5.1); SODIUM 143 mmol/l (137-146)
[2022-03-08] VITALS: BP 123/48
[2022-03-08 04:20] VITALS: BP 141/52
[2022-03-08 06:08] LABS: ANION GAP 11 (6-22 (CALC)); BUN 20 mg/dL (8-23); BUN/CREATININE RATIO 17 (12-20 (CALC)); CARBON DIOXIDE 29 mmol/l (22-30); CHLORIDE 109 mmol/l (95-108); CREATININE 1.2 mg/dL (0.7-1.3); GFR FOR AFR.AMER. > 60 ML/MIN (>=60 (CALC)); GFR OTHER RACES 59 ML/MIN (>=60 (CALC)); MAGNESIUM 1.8 mg/dL (1.6-2.3); POTASSIUM 3.3 mmol/l (3.5-5.1); SODIUM 145 mmol/l (137-146)
[2022-03-08 06:54] VITALS: BP 130/48
[2022-03-08 08:06] VITALS: BP 102/80
[2022-03-08 10:56] VITALS: BP 123/37
[2022-03-08] MEDS ORDERED: KLOR-CON M2020 MEQ PO (11:54)
[2022-03-08] MEDS ORDERED: LASIX 40 MG TAB40 MG PO (11:54)
== END 2022-03-08 14:58 | DRG 291 ==
LOC: ED 19:51 → ED-I 21:50 → ED 22:45 → MS2 22:46 → ICU 03-06 06:30 → MS2 03-07 13:57
PROVIDERS: Emergency Medicine; ADMIT Internal Medicine; ATTEND Internal Medicine
DX: I11.0 Hypertensive heart disease with heart failure (principal); I50.23 Acute on chronic systolic (congestive) heart failure; L03.115 Cellulitis of right lower limb; L03.116 Cellulitis of left lower limb; E11.9 Type 2 diabetes mellitus without complications; I48.91 Unspecified atrial fibrillation; G47.33 Obstructive sleep apnea (adult) (pediatric); M19.90 Unspecified osteoarthritis, unspecified site; F32.A Depression, unspecified; T50.1X6A Underdosing of loop [high-ceiling] diuretics, initial encounter; Z91.128 Patient's intentional underdosing of medication regimen for other reason; Z86.718 Personal history of other venous thrombosis and embolism; Z79.01 Long term (current) use of anticoagulants; Z86.711 Personal history of pulmonary embolism; Z79.4 Long term (current) use of insulin
CPT/HCPCS: G0378

== ENCOUNTER 2022-06-11 18:51 | Inpatient (IN) | payer MEDICARE ==
[~2022-06-11] VITALS: Ht 182.9 cm; Wt 123.3 kg
[~2022-06-11 18:51] MED LIST changes: +KLOR-CON M2020 MEQ PO; +LASIX 40 MG TAB40 MG PO
--- NOTE | 2022-06-11 18:55 | NUR ---
PT ARRIVED TO THE ER VIA EMS, PT REPORTED RECENT FALL AND NEW ONSET WEAKNESS. PT REPORTS RIGHT SHOULDER PAIN. A/OX3, DENIES SOB ON ROOMAIR, VITALS NOTED. FALL AND SAFETY PRECAUTIONS IN PLACE. CALL LIGHT WITH IN REACH.
--- NOTE | 2022-06-11 18:55 | NUR ---
PT TO ROOM 9 FROM EMS FOR TRIAGE
--- NOTE | 2022-06-11 18:56 | NUR ---
PT ARRIVES VIA EMS, MD AWARE, CONNECTED TO VITALS MONITOR
[2022-06-11 19:02] VITALS: BP 137/63
[2022-06-11 19:16] VITALS: BP 118/64
[2022-06-11 19:50] LABS: BASO% 0.2 % (0-3); EOS% 0.1 % (0-8); HEMOGLOBIN 10.1 g/dl (14.0-18.0); IMMATURE GRANULOCYTES 0.7 % (0.0-5.0); LYMPH% 8.9 % (15-41); MEAN CELL VOLUME 99.7 fL CALC (80.0-100.0); MEAN CORPUSCULAR HGB 32.5 pG CALC (26.0-32.0); MEAN CORPUSCULAR HGB CONC 32.6 g/dL CAL (32.0-36.0); MONO% 11.9 % (2-13); NEUT# 7.14 thou/uL (1.82-7.42); NEUT% 78.2 % (42-76); RED BLOOD COUNT 3.11 mill/uL (4.70-6.10); RED CELL DISTRI WIDTH 13.1 % (11.5-15.5)
[2022-06-11 19:58] LABS: ALBUMIN 3.3 g/dL (3.2-5.0); ALKALINE PHOSPHATASE 64 u/l (38-126); BUN 12 mg/dL (8-23); BUN/CREATININE RATIO 11 (12-20 (CALC)); CARBON DIOXIDE 27 mmol/l (22-30); CHLORIDE 105 mmol/l (95-108); CPK 47 u/l (55-170); CREATININE 1.1 mg/dL (0.7-1.3); GFR FOR AFR.AMER. > 60 ML/MIN (>=60 (CALC)); GFR OTHER RACES > 60 ML/MIN (>=60 (CALC)); MAGNESIUM 1.6 mg/dL (1.6-2.3); POTASSIUM 3.1 mmol/l (3.5-5.1); SGOT/AST 18 u/l (19-48); TOTAL PROTEIN 6.2 g/dL (6.3-8.2)
[2022-06-11 19:59] LABS: ANION GAP 6 (6-22 (CALC)); BILIRUBIN, TOTAL 0.5 mg/dL (0.2-1.3); SODIUM 135 mmol/l (137-146)
--- NOTE | 2022-06-11 20:23 | NUR ---
PT AT BEDSIDE.
[2022-06-11 21:43] LABS: URINE BILIRUBIN - DIPSTICK NEGATIVE (NEGATIVE); URINE BLOOD DIPSTICK SMALL (NEGATIVE); URINE COLOR YELLOW; URINE GLUCOSE - DIPSTICK NEGATIVE (NEGATIVE); URINE KETONE NEGATIVE (NEGATIVE); URINE PROTEIN - DIPSTICK TRACE mg/dL (NEG-TRACE); URINE SPECIFIC GRAVITY 1.015
[2022-06-11 21:44] LABS: URINE LEUK ESTERASE MODERATE (NEGATIVE); URINE NITRITE - DIPSTICK NEGATIVE (Negative); URINE WBC >100 WBC/hpf (0-5)
[2022-06-11 21:45] VITALS: BP 119/55
[2022-06-11 21:45] LABS: URINE BACTERIA FEW hpf
[2022-06-11 22:00] VITALS: BP 140/68
[2022-06-12] VITALS (10 sets, daily range): BP systolic 112–160; BP diastolic 44–75
--- NOTE | 2022-06-12 01:02 | NUR ---
REPORT GIVEN TO [facility]
--- NOTE | 2022-06-12 01:15 | NUR ---
PT ARRIVED TO FLOOR VIA STRETCHER ACCOMPANIED BY ER NURSE. PT ALERT AND ORIENTED X3, ORIENTED TO ROOM AND CALL LIGHT, DISCUSSED POC. NOTED SKIN TEARS TO BUE, SKIN TEAR TO L GREAT TOE, STAGE II TO BUTTOCK SEE CHART FOR PHOTOS. PER REPORT FROM ED PT DID FALL BUT DID NOT HIT HIS HEAD. UPON ASSESSMENT OF PT HE STATES THAT HE DID HIT HIS HEAD. NOTED REDNESS AND TENDERNESS TO BACK OF HEAD. NO LUMPS NOTED. PERRLA, PT STATES HE IS INCONTINENT OF URINE, MALE PUREWICK PLACED. +2 PITTING EDEMA TO BLE. IV TO RENETTA FLUSHED WELL. ASSESSMENT COMPLETED. CALL LIGHT IN REACH,CONTINUE TO MONITOR.
--- NOTE | 2022-06-12 01:58 | NUR ---
PAPER AND PULP MILL WORKER MD CALLED AND NOTIFIED OF PT STATING HE HIT HIS HEAD FROM FALL. NO CT WAS OBTAINED IN ED. ORDER FOR STAT EKG AND PT TO BE PLACED ON TELEMETRY. PT TAKEN DOWN TO CT VIA BED BY RIVETING MACHINE OPERATOR.
--- NOTE | 2022-06-12 02:27 | NUR ---
PT RETURNED TO ROOM FROM CT, NO SIGNS OF DISTRESS NOTED, RESP EVEN AND UNLABORED. DENIES ANY COMPLAINTS AT THIS TIME. CALL LIGHT IN REACH,CONTINUE TO MONITOR.
--- NOTE | 2022-06-12 02:42 | NUR ---
Took patient glucose meter check @0220 the meter readed 151.
--- NOTE | 2022-06-12 04:00 | NUR ---
PT RESTING IN BED WITH EYES CLOSED, NO SIGNS OF DISTRESS NOTED, RESP EVEN AND UNLABORED. CALL LIGHT IN REACH,CONTINUE TO MONITOR.
[2022-06-12 05:02] LABS: BASO% 0.2 % (0-3); EOS% 0.1 % (0-8); HEMATOCRIT 28.3 % (39.0-50.0); HEMOGLOBIN 9.4 g/dl (14.0-18.0); IMMATURE GRANULOCYTES 0.1 % (0.0-5.0); MEAN CELL VOLUME 98.6 fL CALC (80.0-100.0); MEAN CORPUSCULAR HGB 32.8 pG CALC (26.0-32.0); MEAN CORPUSCULAR HGB CONC 33.2 g/dL CAL (32.0-36.0); MONO% 13.6 % (2-13); NEUT# 6.43 thou/uL (1.82-7.42); RED BLOOD COUNT 2.87 mill/uL (4.70-6.10)
[2022-06-12 05:23] LABS: ALKALINE PHOSPHATASE 53 u/l (38-126); ANION GAP 6 (6-22 (CALC)); BILIRUBIN, TOTAL 0.5 mg/dL (0.2-1.3); BUN 11 mg/dL (8-23); BUN/CREATININE RATIO 12 (12-20 (CALC)); CARBON DIOXIDE 25 mmol/l (22-30); CHLORIDE 108 mmol/l (95-108); GFR FOR AFR.AMER. > 60 ML/MIN (>=60 (CALC)); GFR OTHER RACES > 60 ML/MIN (>=60 (CALC)); MAGNESIUM 1.6 mg/dL (1.6-2.3); POTASSIUM 3.2 mmol/l (3.5-5.1); SGOT/AST 18 u/l (19-48); SODIUM 135 mmol/l (137-146); TOTAL PROTEIN 5.1 g/dL (6.3-8.2)
[2022-06-12 05:25] LABS: ALBUMIN 2.6 g/dL (3.2-5.0)
--- NOTE | 2022-06-12 06:51 | NUR ---
pt glucose was 134 @0630
--- NOTE | 2022-06-12 08:00 | NUR ---
ASSUMED CARE OF PT. PT RESTIN IN BED. STATES HIS SHOULD IS BOTHERIN HIM. PT REPOSITIOINED FOR COMFORT. MEDICATED WITH TYLENOL PER REQUEST. PLAN OF CARE DISCUSSED. BED IN LOWEST POSITION. PERSONAL BELONGING WITHIN REACH. WILL CONTINUE TO MONITOR.
--- NOTE | 2022-06-12 11:26 | NUR ---
pt glucose was 162 @1100
--- NOTE | 2022-06-12 12:00 | NUR ---
PT IN CHAIR, EATING. COMPLAINTS OF NO APPETITE, BUT DENIES ANY OTHER NEEDS AT THIS TIME. EXTERNAL CATH IN PLACE. WILL CONTINUE TO MONITOR.
--- NOTE | 2022-06-12 16:00 | NUR ---
PT RESTING IN BED, FEELING ANXIOUS, SHAKING. AT BEDSIDE STATES PT HAS BEEN TAKING BUSPAR DAILY TO HELP WITH THIS. REQUESTING THE MEDICATION TO BE RESTARTED. NOTIFIED.
--- NOTE | 2022-06-12 22:00 | NUR ---
PT IN BED WATCHING TV. PT NOTED COUGHING MODERATELY AND REQUEST COUGH MEDECINE, COUGH IS NON-PRODUCTIVE. DR TELLEZ NOTIFIED OF PT REQUEST, DR ORDER ROBITOSSIN 200MG Q6H PRN. ORDER FAX TO PHARMACY. NO OTHER NEED OR CONCERN VOICED PT IN RECLINER CALL LIGHT IN REACH.
[2022-06-13] VITALS (7 sets, daily range): BP systolic 118–170; BP diastolic 48–72
--- NOTE | 2022-06-13 00:55 | NUR ---
PT IN BED RESTING WITH EYES CLOSED BREATHING EVEN AND UNLABORED. NO S/S OF DISTRESS NOTED. PT SHOW A TEMP OF 103.4 PT MEDICATED PER MAR. NO NEED OR CONCERNS VOICED. CALL LIGHT IN REACH AND BED IN LOWEST POSITION.
--- NOTE | 2022-06-13 04:55 | NUR ---
pt in bed resting no s/s of distress noted breathing even and unlabored. pt unable to get up for daily weight pt to weak to stand up. weight obtain in bed extra linen revom for weight. call light in reach and bed in lowest position.
[2022-06-13 05:13] LABS: BASO% 0.3 % (0-3); EOS% 0.1 % (0-8); HEMOGLOBIN 9.7 g/dl (14.0-18.0); IMMATURE GRANULOCYTES 0.2 % (0.0-5.0); LYMPH% 15.9 % (15-41); MEAN CORPUSCULAR HGB 32.3 pG CALC (26.0-32.0); MEAN CORPUSCULAR HGB CONC 32.3 g/dL CAL (32.0-36.0); MONO% 15.2 % (2-13); NEUT# 5.98 thou/uL (1.82-7.42); NEUT% 68.3 % (42-76); RED CELL DISTRI WIDTH 13.3 % (11.5-15.5)
[2022-06-13 05:24] LABS: ANION GAP 7 (6-22 (CALC)); BUN 14 mg/dL (8-23); BUN/CREATININE RATIO 12 (12-20 (CALC)); CARBON DIOXIDE 25 mmol/l (22-30); CHLORIDE 107 mmol/l (95-108); CREATININE 1.1 mg/dL (0.7-1.3); GFR FOR AFR.AMER. > 60 ML/MIN (>=60 (CALC)); GFR OTHER RACES > 60 ML/MIN (>=60 (CALC)); MAGNESIUM 1.7 mg/dL (1.6-2.3); POTASSIUM 3.1 mmol/l (3.5-5.1); SODIUM 136 mmol/l (137-146)
--- NOTE | 2022-06-13 07:58 | NUR ---
0700 BEDSIDE REPORT RECEIVED FROM RED GUTIERREZ. PT RESTING IN BED WITH EYES OPEN, EASILY AROUSED WHEN CALLED BY NAME. PT ALERT AND ORIENTED X4. NO COMPLAINTS VOICED AT THIS TIME. RESP EVEN AND UNLABORED, PT ON ROOM AIR. PT UPDATED ON POC, VERBALIZES UNDERSTANDING. ALL PERSONAL ITEMS WITHIN REACH. SAFETY PRECAUTIONS IN PLACE.
--- NOTE | 2022-06-13 16:02 | NUR ---
1600 SPOKE TO ALEXA AT [facility] AND ADVISED THAT WE NEED AN UPDATED MEDICATION LIST OF PATIENT'S CURRENT MEDICATIONS, FAX NUMBER PROVIDED.
--- NOTE | 2022-06-13 16:08 | NUR ---
PRELIMINARY BLOOD CULTURE CALLED TO [facility]/ VIALS GROWING GRAM (-) MAGALI. NEW ORDERS FRO ROCEPHIN 2GRAM Q24H ENTERED.
--- NOTE | 2022-06-13 19:55 | NUR ---
RECEIVED REPORT FROM DAY SHIFT NURSE. PT RESTING ON BED HIGH FOWLERS; A&O X3. EVEN AND UNLABORED RESPIRATIONS; CLEAR LUNG SOUNDS UPON AUSCULTATION. TELEMETRY IN PLACE. IV SITE HEALTHY AND PATENT. ACTIVE BOWEL SOUNDS X4 QUADRANTS. PUREWICK IN PLACE WITH CLEAR, YELLOW URINE. SKIN TEAR TO RT ELBOW. SMALL CUT NOTED TO LEFT BIG TOE, PIC OBTAINED AND PLACED IN CHART. +2 EDEMA TO KARLIE LOWER EXTREMITIES. SAFETY PRECAUTIONS IN PLACE WITH CALL LIGHT IN REACH.
[2022-06-14 00:12] VITALS: BP 154/61
--- NOTE | 2022-06-14 00:15 | NUR ---
PT RESTING ON BED WITH EYES CLOSED. NO DISTRESS OR PAIN NOTED. VS COMPLETED. MALE PUREWICK IN PLACE. NO VOICED NEEDS AT THIS TIME. SAFETY PRECAUTIONS IN PLACE WITH CALL LIGHT IN REACH.
[2022-06-14 04:54] VITALS: BP 145/67
--- NOTE | 2022-06-14 05:00 | NUR ---
PT RESTING ON BED. VS COMPLETED. GEETA CARE PROVIDED. NO DISTRESS OR PAIN NOTED. SAFETY PRECAUTIONS IN PLACE WITH CALL LIGHT IN REACH.
[2022-06-14 05:45] LABS: HEMATOCRIT 31.4 % (39.0-50.0); HEMOGLOBIN 10.3 g/dl (14.0-18.0); MEAN CELL VOLUME 99.1 fL CALC (80.0-100.0); MEAN CORPUSCULAR HGB 32.5 pG CALC (26.0-32.0); MEAN CORPUSCULAR HGB CONC 32.8 g/dL CAL (32.0-36.0); RED BLOOD COUNT 3.17 mill/uL (4.70-6.10); RED CELL DISTRI WIDTH 13.2 % (11.5-15.5)
[2022-06-14 06:05] LABS: ALBUMIN 2.8 g/dL (3.2-5.0); ALKALINE PHOSPHATASE 59 u/l (38-126); BUN 15 mg/dL (8-23); BUN/CREATININE RATIO 14 (12-20 (CALC)); CARBON DIOXIDE 25 mmol/l (22-30); CHLORIDE 108 mmol/l (95-108); CREATININE 1.1 mg/dL (0.7-1.3); GFR FOR AFR.AMER. > 60 ML/MIN (>=60 (CALC)); GFR OTHER RACES > 60 ML/MIN (>=60 (CALC)); MAGNESIUM 1.8 mg/dL (1.6-2.3); SGOT/AST 19 u/l (19-48); SODIUM 137 mmol/l (137-146); TOTAL PROTEIN 5.7 g/dL (6.3-8.2)
[2022-06-14 06:30] LABS: ANION GAP 6 (6-22 (CALC)); BILIRUBIN, TOTAL 0.1 mg/dL (0.2-1.3); POTASSIUM 2.4 mmol/l (3.5-5.1)
--- NOTE | 2022-06-14 06:37 | NUR ---
RECIEVED CALL FROM MICHAEL IN LAB WITH CRITICAL K-2.4. DR. GALARZA NOTIFIED AND NEW ORDER RECEIVED FOR KCL 40MEQ PO X 2 DOSES. ORDER FAXED TO . WILL CONT TO MONITOR.
[2022-06-14 06:51] VITALS: BP 154/66
--- NOTE | 2022-06-14 07:00 | NUR ---
RECEIVE REPORT FROM ANNAMARIE MOON.
--- NOTE | 2022-06-14 08:00 | NUR ---
Alert and oriented patient x3. No respiratory distress or pain is reported or observed at the time of writing this note. Assessment head-to toe complete. Patient connected to telemetry with good heart rate at the time of this note. Patient is educated aboud medications and nursing plan for today. Patient refer understand. Safety and fall precautions in place. Call light within in reach.
--- NOTE | 2022-06-14 12:00 | NUR ---
Patient resting in bed. stable at this time. Safety and fall precautions in place. Call light within in reach.
--- NOTE | 2022-06-14 16:00 | NUR ---
PATIENT STABLE AT THIS TIME. RESTING IN BED. AT BED SIZE. CONSULT WITH DR. JOSEPH LUA.
[2022-06-14 18:50] VITALS: BP 152/74
--- NOTE | 2022-06-14 19:47 | NUR ---
RECEIVED REPORT FROM MINDI FAUSTIN. PT RESTING ON BED HIGH FOWLERS; A&O X3. EVEN AND UNLABORED RESPIRATIONS; CLEAR LUNG SOUNDS UPON AUSCULTATION. TELEMETRY IN PLACE. IV SITE FLUSHED; #22G TO RT AC, HEALTHY AND PATENT. HYPERACTIVE BOWEL SOUNDS X4 QUADRANTS. MALE PUREWICK IN PLACE WITH ARABELLA, CLEAR URINE. SAFETY PRECAUTIONS IN PLACE WITH CALL LIGHT IN REACH.
[2022-06-14 21:00] VITALS: BP 147/72
--- NOTE | 2022-06-14 21:00 | NUR ---
PT TURNED AND REPOSITION AT THIS TIME. GEETA CARE PROVIDED; LARGE LOOSE, BROWN BM. SAFETY PRECAUTIONS IN PLACE WITH CALL LIGHT IN REACH.
[2022-06-15 00:23] VITALS: BP 111/44
--- NOTE | 2022-06-15 00:30 | NUR ---
PT RESTING ON BED WITH EYES CLOSED, SUPINE POSITION. NO DISTRESS OR PAIN NOTED. MALE PUREWICK IN PLACE. SAFETY PRECAUTIONS IN PLACE WITH CALL LIGHT IN REACH.
--- NOTE | 2022-06-15 04:01 | NUR ---
PT RESTING WITH EYES CLOSED, SUPINE POSITION. NO DISTRESS OR PAIN NOTED. IV SITE HEALTHY AND PATENT. MALE PUREWICK IN PLACE. SAFETY PRECAUTIONS IN PLACE WITH CALL LIGHT IN REACH.
[2022-06-15 04:37] VITALS: BP 154/59
--- NOTE | 2022-06-15 04:51 | NUR ---
PT REFUSED TO GET WEIGH ON VALERIANO LIFT. PT STATES: "IT IS TOO EARLY IN THE MORNING, JUST CLOSE THE DOOR AND LET ME GET SOME SNOOZE". PT EDUCATED ON THE NEED TO GET HIM WEIGH, PT AGREED TO DO IT BEFORE BREAKFAST.
[2022-06-15 05:28] LABS: HEMATOCRIT 31.5 % (39.0-50.0); HEMOGLOBIN 10.4 g/dl (14.0-18.0); MEAN CELL VOLUME 97.8 fL CALC (80.0-100.0); MEAN CORPUSCULAR HGB 32.3 pG CALC (26.0-32.0); RED BLOOD COUNT 3.22 mill/uL (4.70-6.10); RED CELL DISTRI WIDTH 13.2 % (11.5-15.5)
[2022-06-15 05:46] LABS: ALBUMIN 2.9 g/dL (3.2-5.0); ALKALINE PHOSPHATASE 59 u/l (38-126); BUN 19 mg/dL (8-23); BUN/CREATININE RATIO 17 (12-20 (CALC)); CARBON DIOXIDE 25 mmol/l (22-30); CHLORIDE 109 mmol/l (95-108); CREATININE 1.1 mg/dL (0.7-1.3); GFR FOR AFR.AMER. > 60 ML/MIN (>=60 (CALC)); GFR OTHER RACES > 60 ML/MIN (>=60 (CALC)); SGOT/AST 18 u/l (19-48); SODIUM 139 mmol/l (137-146); TOTAL PROTEIN 5.7 g/dL (6.3-8.2)
[2022-06-15 06:01] LABS: ANION GAP 7 (6-22 (CALC))
[2022-06-15 06:03] LABS: POTASSIUM 2.3 mmol/l (3.5-5.1)
[2022-06-15 07:32] VITALS: BP 148/61
--- NOTE | 2022-06-15 07:48 | NUR ---
RECEIVE REPORT FROM ANNAMARIE MOON.
--- NOTE | 2022-06-15 10:48 | NUR ---
Pt stated I am not doing therapy now on entering his room this am. Stated he just got settled done, he denied sitting or being OOB, nursing notified. No treatment given.
[2022-06-15 11:09] VITALS: BP 153/61
--- NOTE | 2022-06-15 12:00 | NUR ---
PATIENT STABLE AT THIS TIME. RESTING IN BED. CALL LIGHT WITHIN IN REACH.
[2022-06-15 15:49] VITALS: BP 158/57
--- NOTE | 2022-06-15 16:34 | NUR ---
PATIENT SITTING UP IN BED. RESPS ARE EVEN AND UNLABORED. CALL LIGHT IN REACH. WILL CONT TO MONITOR.
--- NOTE | 2022-06-15 21:17 | NUR ---
PATIENT ALERT AND ORIENTED. VSS, ASSESSMENT COMPLETE. COREG HELD FOR HR OF 55BPM. PATIENT DENIES PAIN AT THIS TIME. INCONTINENT OF BOWEL, WATERY. GEETA CARE COMPLETE, BRIEF PLACED. REPOSITIONED IN BED. CALL LIGHT WITHIN REACH.
[2022-06-16 00:02] VITALS: BP 149/56
--- NOTE | 2022-06-16 00:52 | NUR ---
PATIENT RESTLESS. CONSTANT COUGHING; ROBITUSSIN GIVEN. NO FURTHER CONCERNS EXPRESSED. CALL LIGHT WITHIN REACH.
[2022-06-16 04:41] VITALS: BP 161/67
--- NOTE | 2022-06-16 04:59 | NUR ---
PATIENT BRADYCARDIC, RATE 30'S. PER PATTERN CHAIN BUILDER, IT APPEARS THERE IS A RHYTHM CHANGE. EKG OBTAINED, READ SINUS BRADYCARDIA RATE 58; NO RHYTHM CHANGE.
[2022-06-16 05:54] LABS: HEMATOCRIT 33.2 % (39.0-50.0); HEMOGLOBIN 10.9 g/dl (14.0-18.0); MEAN CELL VOLUME 96.8 fL CALC (80.0-100.0); MEAN CORPUSCULAR HGB 31.8 pG CALC (26.0-32.0); MEAN CORPUSCULAR HGB CONC 32.8 g/dL CAL (32.0-36.0); RED BLOOD COUNT 3.43 mill/uL (4.70-6.10); RED CELL DISTRI WIDTH 13.2 % (11.5-15.5)
[2022-06-16 06:01] LABS: ALKALINE PHOSPHATASE 57 u/l (38-126); BUN 19 mg/dL (8-23); BUN/CREATININE RATIO 17 (12-20 (CALC)); CARBON DIOXIDE 27 mmol/l (22-30); CHLORIDE 110 mmol/l (95-108); CREATININE 1.2 mg/dL (0.7-1.3); GFR FOR AFR.AMER. > 60 ML/MIN (>=60 (CALC)); GFR OTHER RACES 59 ML/MIN (>=60 (CALC)); MAGNESIUM 2.1 mg/dL (1.6-2.3); SGOT/AST 17 u/l (19-48); SODIUM 140 mmol/l (137-146); TOTAL PROTEIN 5.9 g/dL (6.3-8.2)
[2022-06-16 06:20] LABS: ANION GAP 5 (6-22 (CALC)); BILIRUBIN, TOTAL 0.1 mg/dL (0.2-1.3); POTASSIUM 2.3 mmol/l (3.5-5.1)
--- NOTE | 2022-06-16 06:31 | NUR ---
CRITICAL POTASSIUM LEVEL 2.3 DOWN FROM 2.6 ON 06/15. CALL TO DR. TELLEZ, NO ANSWER, LEFT VOICEMAIL REQUESTING RETURN CALL. WILL ATTEMPT CALL AGAIN.
--- NOTE | 2022-06-16 07:39 | NUR ---
CONTACTED DR STOREY'S OFFICE IN REFERENCE TO A PHYSICIAN CONSULT. I SPOKE WITH THE ANSWERING SERVICE (JULY) AT 0739 HRS.
--- NOTE | 2022-06-16 08:00 | NUR ---
PATIENT RESTING HAVING A HARD TIME SLEEPING DUE TO HIS SLEEP APNEA. PATIENT'S SPOUSE WILL BE BRING IT LATER TODAY. POTASSIUM LEVEL IS 2.3 REPLACED WITH 40 MEQ IV AND WITH PO 40 MEQ. PATIENT REFUSED BREAKFAST AND GETTING OUT OF BED.
[2022-06-16 08:14] VITALS: BP 150/67
[2022-06-16 10:41] VITALS: BP 152/64
[2022-06-16] MEDS ORDERED: FLORASTOR250 M1 PO (11:01)
[2022-06-16] MEDS ORDERED: ALDACTONE25 MG PO (11:01)
[2022-06-16] MEDS ORDERED: CEFUROXIME500 MG PO ×2 (11:02→12:54)
--- NOTE | 2022-06-16 12:00 | NUR ---
PATIENT STILL REFUSING TO GET OUT OF BED. CPAP PLACED ON PATIENT BY SPOUSE. PATIENT STILL REFUSING SOLID FOODS WAS ABLE TO ENCOURAGE TO DRINK GLUCERNA. POTASSIUM IS UP TO 2.9 GAVE PATIENT 40 MEQ PO. WAITING FOR FURTHER INSTRUCTIONS POSSIBLE DISCHARGE IF OKAY WITH ACUTE REHAB IN [place]. WILL CONTINUE TO MONITOR.
--- NOTE | 2022-06-16 14:20 | NUR ---
PATIENT IS STILL SLEEPING REFUSING TO GET OUT OF BED. AWAITING TIME FOR [facility] REPRESENTATIVE TO REHAB.
--- NOTE | 2022-06-16 16:39 | NUR ---
NURSE GAVE REPORT TO [facility]. INFORMED NURSE THERE THAT PATIENT IS SCHEDULED TO E PICKED UP AT 6PM FROM HERE. PATIENT WILL BE GOING TO ROOM 115A PHONE NUMBER FOR [facility] IN [place] IS [phone].
[2022-06-16 17:00] VITALS: BP 138/62
--- NOTE | 2022-06-16 18:05 | NUR ---
PATIENT DISCHARGED TO [facility] IN [place]. MEDICAL TRANSPORT TOOK PATIENT IN [facility]. PATIENT TOOK ALL BELONGINGS INCLUDING CPAP MACHINE. PIV REMOVED AND HEART MONITOR.
== END 2022-06-16 18:05 | DRG 690 ==
LOC: ED 18:51 → ED-I 21:46 → ED 06-12 00:53 → MS2 06-12 00:54
PROVIDERS: Family Medicine; ADMIT Internal Medicine; ATTEND Internal Medicine
DX: N39.0 Urinary tract infection, site not specified (principal); R78.81 Bacteremia; N45.1 Epididymitis; I11.0 Hypertensive heart disease with heart failure; I50.9 Heart failure, unspecified; E11.9 Type 2 diabetes mellitus without complications; E87.6 Hypokalemia; E78.00 Pure hypercholesterolemia, unspecified; F32.A Depression, unspecified; I48.0 Paroxysmal atrial fibrillation; M25.511 Pain in right shoulder; N39.498 Other specified urinary incontinence; N40.1 Benign prostatic hyperplasia with lower urinary tract symptoms; R35.0 Frequency of micturition; N43.3 Hydrocele, unspecified; G47.33 Obstructive sleep apnea (adult) (pediatric); R19.7 Diarrhea, unspecified; E66.01 Morbid (severe) obesity due to excess calories; B96.4 Proteus (mirabilis) (morganii) as the cause of diseases classified elsewhere; Z68.38 Body mass index [BMI] 38.0-38.9, adult; Z23 Encounter for immunization; Z86.73 Personal history of transient ischemic attack (TIA), and cerebral infarction without residual deficits; Z91.81 History of falling; Z86.718 Personal history of other venous thrombosis and embolism; Z79.01 Long term (current) use of anticoagulants; Z79.4 Long term (current) use of insulin; Z20.822 Contact with and (suspected) exposure to COVID-19
CPT/HCPCS: G0378